=== PATIENT | male | born 1985 | race Caucasian/White ===

== ENCOUNTER → 2018-02-06 15:15 | Outpatient (CLI) | payer OTHER, SELFPAY ==
--- NOTE | 2018-02-06 15:15 | DT_ITS ---
This patient was seen during an EMR downtime February 03, 2018 - February 10, 2018. This patient may have a combination of paper and electronic documentation or all paper documentation. All documentation is viewable within the e-chart portion of [employer] for each patient visit.
[2018-02-11 01:51] LABS: ALB/GLOB Ratio 0.9 RATIO (0.9-2.4); Albumin, Serum 3.8 g/dL (3.2-5.0); BUN 14 mg/dL (7-18); BUN/Creat Ratio 14.7 RATIO (10-20); Creatinine, Serum 0.95 mg/dL (0.70-1.30); EST Glomerular Filtration Rate 98 mL/min (>60); Est Glom Filt Rate - Afr Amer 119 mL/min (>60); Globulin 4.1 g/dL (2.2-4.2); Glucose 93 mg/dL (74-106); Protein, Total 7.9 g/dL (6.4-8.2)
[2018-02-11 01:52] LABS: AST(SGOT) 57 U/L (15-37); Alanine Aminotransfer ALT/SGPT 141 U/L (16-61); Alkaline Phosphatase 64 U/L (45-117); Anion Gap 6 (5-15); Calcium,Total 8.4 mg/dL (8.5-10.1); Chloride 106 mmol/L (98-107); Potassium 3.9 mmol/L (3.5-5.1); Sodium Level 141 mmol/L (136-145); T4 Free Direct 1.04 ng/dL (0.76-1.46)
[2018-02-11 03:31] LABS: Absolute Lymphocyte Count 2.71 X10^3/ul (0.83-4.51); Absolute Neutrophil Count 4.6 X10^3/uL (2.0-7.7); Basophil# 0.02 X10^3/uL; Basophil% 0.2 % (0-1); Eosinophil# 0.54 X10^3/uL; Eosinophils% 6.5 % (0-5); Hematocrit 45.7 % (40-54); Lymphocyte # 2.71 X10^3/ul (4.0); Lymphocyte % 32.5 % (19-41); Mean Corp Hgb Conc 32.8 g/gl (32-36); Mean Corpuscular Hgb 28.7 pg (27.0-32.0); Mean Corpuscular Volume 87.5 fL (80-94); Mean Platelet Vol. 11.3 fl (6.2-12.0); Monocyte# 0.43 X10^3/uL; Monocyte% 5.2 % (0-10); Neutrophil # 4.62 X10^3/uL (2.7-7.7); Neutrophil % 55.5 % (47-70); POSITIVE COUNT NO; POSITIVE DIFFERENTIAL NO; POSITIVE MORPHOLOGY NO; Platelet Count 260 K/mm3 (150-450); RBC Distribution Width CV 12.8 % (11.6-14.6); RBC Distribution Width SD 40.8 fl (35.1-43.9); Red Blood Count 5.22 M/mm3 (4.6-6.2); White Blood Count 8.3 K/mm3 (4.4-11.0)
== END ==
PROVIDERS: Visit Provider Family Medicine
DX: E66.9 Obesity, unspecified (principal); E01.0 Iodine-deficiency related diffuse (endemic) goiter
CPT/HCPCS: 36415; 80053; 84432; 84439; 84443; 85025; 86376; 86800

== ENCOUNTER → 2018-02-12 10:16 | Outpatient (CLI) | payer OTHER, SELFPAY ==
--- NOTE | 2018-02-12 10:23 | US_ITS ---
STUDY: THYROID ULTRASOUND REASON FOR EXAM: Male, 32 years old. Thyromegaly. TECHNIQUE: Ultrasound evaluation of the thyroid was performed with real-time and static mack-scale imaging. COMPARISON: None. FINDINGS: RIGHT LOBE: The right lobe of the thyroid gland measures 5.2 x 2.0 x 1.9 cm. There is a homogeneous echotexture. There are no demonstrated solid, cystic or complex lesions. LEFT LOBE: The left lobe of the thyroid gland measures 5.2 x 1.9 x 1.9 cm. There is a homogeneous echotexture. There are no demonstrated solid, cystic or complex lesions. ISTHMUS: The isthmus measures 3.0 mm . The regional lymph nodes are normal. US/Thyroid IMPRESSION: Enlarged thyroid gland. No solid nodules identified. Electronically Signed: Jeanine Victoria MD at 10:51 EDT Tel , Service support ,
== END ==
LOC: US 10:19
PROVIDERS: Family Provider Family Medicine; PCP Family Medicine; Visit Provider Family Medicine
DX: E01.0 Iodine-deficiency related diffuse (endemic) goiter (principal)
CPT/HCPCS: 76536

== ENCOUNTER → 2018-03-18 16:34 | Outpatient (CLI) | payer OTHER, SELFPAY ==
[2018-03-18 18:09] LABS: AST(SGOT) 53 U/L (15-37); Alanine Aminotransfer ALT/SGPT 124 U/L (16-61); Albumin, Serum 3.9 g/dL (3.2-5.0); Alkaline Phosphatase 60 U/L (45-117); Anion Gap 7 (5-15); BUN 13 mg/dL (7-18); BUN/Creat Ratio 12.9 RATIO (10-20); Calcium,Total 9.1 mg/dL (8.5-10.1); Chloride 105 mmol/L (98-107); Creatinine, Serum 1.01 mg/dL (0.70-1.30); EST Glomerular Filtration Rate 91 mL/min (>60); Est Glom Filt Rate - Afr Amer 110 mL/min (>60); Globulin 3.9 g/dL (2.2-4.2); Glucose 94 mg/dL (74-106); Potassium 3.9 mmol/L (3.5-5.1); Protein, Total 7.8 g/dL (6.4-8.2); Sodium Level 142 mmol/L (136-145)
[2018-03-20 09:35] LABS: HEPATITIS B SURFACE AG Negative (Negative); Hep B Surface Antibodies Non Reactive (.); Hep C Antibodies 0.1 s/co ratio (0.0-0.9)
== END ==
LOC: MFPLAB 16:34
PROVIDERS: Family Provider Family Medicine; PCP Family Medicine; Visit Provider Family Medicine
DX: R94.5 Abnormal results of liver function studies (principal)
CPT/HCPCS: 36415; 80053; 86706; 86803; 87340

== ENCOUNTER → 2018-03-27 10:13 | Outpatient (CLI) | payer OTHER, SELFPAY ==
--- NOTE | 2018-03-27 10:21 | US_ITS ---
STUDY: ABDOMINAL ULTRASOUND - RIGHT UPPER QUADRANT REASON FOR VISIT: Male, 32 years old. Elevated LFTs, nausea TECHNIQUE: Ultrasound evaluation of the right upper quadrant was performed with real-time and static mack-scale imaging. TECHNICAL QUALITY: Adequate. COMPARISON: None. FINDINGS: Liver: The liver measures 18.7 cm. There is increased echogenicity consistent with fatty infiltration. The bile ducts are within normal limits. There is hepatic color flow. The direction of portal flow is hepatopetal. There is no demonstrated mass lesion. Gallbladder: Normal distended gallbladder. The gallbladder wall measures 2.8 mm. There is a negative sonographic Rojas's sign. There is no pericholecystic fluid. There are no gallstones. Common Bile Duct (C.B.D.): The common bile duct measures 5.1 mm. Pancreas: Normal size of the head, body and tail of the pancreas. There is normal echogenicity of the pancreas. There is no demonstrated pancreatic mass or cyst. Right Kidney: Normal size of the right kidney. The right kidney measures 11.2 x 5.4 x 4.9 cm. Normal renal cortex. The right cortex measures 1.9 cm. There is no demonstrated renal mass or cyst. There is no right hydronephrosis. US/Liver IMPRESSION: Hepatomegaly with fatty infiltration of liver, no discrete lesion Electronically Signed: Cheikh Doshi MD at 11:11 EDT , Service support ,
== END ==
PROVIDERS: Family Provider Family Medicine; PCP Family Medicine; Visit Provider Family Medicine
DX: R94.5 Abnormal results of liver function studies (principal)
CPT/HCPCS: 76705

== ENCOUNTER 2018-11-05 04:59 | Emergency (ER) | payer OTHER, SELFPAY ==
[2018-11-05 05:00] VITALS: BP 139/92; PULSE 90; RESP 18; TEMP 35.7; O2SAT 98; BMI 35.4
--- NOTE | 2018-11-05 05:03 | RAD_ITS ---
STUDY: X-RAY - PELVIS REASON FOR EXAM: Male, 33 years old. Fall and tender left ischium TECHNIQUE: One view of the pelvis was obtained. COMPARISON: None. FINDINGS: There is a non-specific bowel gas pattern. Normal visualized soft tissue structures. Normal bilateral iliac wings, sacroiliac joints and visualized sacrum. Normal visualized bilateral superior and inferior pubic rami. Normal pubic symphysis. Normal ischial tuberosities. Normal visualized right femoral head. Normal right acetabulum. Normal right hip joint. Normal visualized left femoral head. Normal left acetabulum. Normal left hip joint. RAD/Pelvis 1 or 2 Views IMPRESSION: No acute osseous injury is evident. Electronically Signed: Mushtaq Hood MD at 6:08 EST Tel , Service support ,
[2018-11-05] MEDS: Ibuprofen 600 MG Tablet PO (05:06)
--- NOTE | 2018-11-05 05:09 | ED.DCSUM_ITS ---
- ER Visit Summary Date of Service: 11/05/18 Chief Complaint: Fall, back pain History of Present Illness: The patient is a 33 M slipped down steps inside at 3 AM. Fell directly on left buttocks, no head injuries. Concerns of back pain. No medicines taken prior to arrival. No history of gastric ulcers or kidney injury. Pain worse with walking. No radicular symptoms. Physical Examination: General: Alert and oriented ?3, no acute distress HEENT: Normocephalic, atraumatic. Moist mucosa membranes Neck: supple, nontender. Cardiovascular: Regular rate and rhythm, no murmurs Respiratory: Normal breath sounds, symmetric, no distress Back: No midline spine tenderness. There is tender palpation to his left ischium, no sacral tenderness. Straight leg test was negative. Abdomen: Soft, nontender, nondistended. There is no anterior pelvic rim tenderness. Extremities: Nontender, no edema, pulses intact ?4. Negative logroll bilaterally. Neuro: no focal neurological deficits. Test Results: Pelvic x-ray: No acute process Emergency Department Course and Treatment: Patient given Motrin, x-ray pelvis obtained reviewed by myself shows no acute process. Discussed gluteal contusion, he will continue NSAIDs [id number] to help with symptoms. He is ambulating. He will follow-up as an outpatient. Work note given for today. All questions were answered. Treatment Plan: [] Disposition: Discharge Impression: Left gluteal contusion This note was generated with [employer] dictation software. It may contain incorrect words, spelling, and punctuation that were not noted in review of the chart prior to signing ED Disposition - Plan for ED Patient: Disposition: Home or Assisted Living Diagnosis: Contusion, buttock Instructions: ED Contusion Soft Tissue Referrals: Epi Foote MD [Primary Care Provider] - 3-5 Days if not improving
== END 2018-11-05 05:45 | disposition home or self-care (01) ==
PROVIDERS: Emergency Provider Emergency Medicine; Family Provider Family Medicine; PCP Family Medicine
DX: S30.0XXA Contusion of lower back and pelvis, initial encounter (principal); W10.9XXA Fall (on) (from) unspecified stairs and steps, initial encounter; Y93.9 Activity, unspecified; Y92.9 Unspecified place or not applicable; Y99.9 Unspecified external cause status
CPT/HCPCS: 72170; 99283

== ENCOUNTER → 2020-02-03 16:49 | Outpatient (CLI) | payer OTHER, SELFPAY ==
[2020-02-03 18:39] LABS: ALB/GLOB Ratio 0.9 RATIO (0.9-2.4); AST(SGOT) 55 U/L (15-37); Alanine Aminotransfer ALT/SGPT 157 U/L (16-61); Albumin, Serum 3.7 g/dL (3.2-5.0); Alkaline Phosphatase 67 U/L (45-117); Anion Gap 8 (5-15); BUN 16 mg/dL (7-18); BUN/Creat Ratio 15.5 RATIO (10-20); Chloride 107 mmol/L (98-107); Creatinine, Serum 1.03 mg/dL (0.70-1.30); EST Glomerular Filtration Rate 88 mL/min (>60); Est Glom Filt Rate - Afr Amer 106 mL/min (>60); Globulin 4.2 g/dL (2.2-4.2); Glucose 109 mg/dL (74-106); Potassium 3.6 mmol/L (3.5-5.1); Protein, Total 7.9 g/dL (6.4-8.2); Sodium Level 143 mmol/L (136-145)
== END ==
PROVIDERS: PCP Family Medicine; Referring Provider Family Medicine; Visit Provider Family Medicine
DX: K76.0 Fatty (change of) liver, not elsewhere classified (principal)
CPT/HCPCS: 36415; 80053

== ENCOUNTER → 2020-02-04 13:50 | Outpatient (CLI) | payer OTHER, SELFPAY ==
[2020-02-04 18:12] LABS: Hemoglobin A1c 5.8 % (3.8-5.6)
== END ==
PROVIDERS: PCP Family Medicine; Referring Provider Family Medicine; Visit Provider Family Medicine
DX: R73.09 Other abnormal glucose (principal)
CPT/HCPCS: 36415; 83036

== ENCOUNTER → 2021-02-20 10:41 | Outpatient (CLI) | payer BC, SELFPAY ==
[2021-02-20 12:22] LABS: Absolute Lymphocyte Count 2.39 X10^3/uL (0.83-4.51); Absolute Neutrophil Count 7.3 X10^3/uL (2.0-7.7); Basophil# 0.03 X10^3/uL; Basophil% 0.3 % (0-1); Eosinophil# 0.47 X10^3/uL; Eosinophils% 4.3 % (0-5); Hematocrit 48.2 % (40-54); Hemoglobin 15.5 g/dL (13.0-16.5); Lymphocyte # 2.39 X10^3/ul (0.83-4.51); Lymphocyte % 21.9 % (19-41); Mean Corp Hgb Conc 32.2 g/dL (32-36); Mean Corpuscular Hgb 28.7 pg (27.0-32.0); Mean Corpuscular Volume 89.3 fL (80-94); Mean Platelet Vol. 12.5 fl (6.2-12.0); Monocyte# 0.74 X10^3/uL; Monocyte% 6.8 % (0-10); NRBC Flagged by Analyzer 0 % (0-5); Neutrophil # 7.25 X10^3/uL (2.7-7.7); Neutrophil % 66.4 % (47-70); Platelet Count 263 K/mm3 (150-450); RBC Distribution Width CV 12.7 % (11.6-14.6); RBC Distribution Width SD 41.3 fl (35.1-43.9); White Blood Count 10.9 K/mm3 (4.4-11.0)
[2021-02-20 12:37] LABS: ALB/GLOB Ratio 0.8 RATIO (0.9-2.4); AST(SGOT) 62 U/L (15-37); Alanine Aminotransfer ALT/SGPT 130 U/L (16-61); Albumin, Serum 3.5 g/dL (3.2-5.0); Alkaline Phosphatase 67 U/L (45-117); Anion Gap 8 (5-15); BUN 14 mg/dL (7-18); BUN/Creat Ratio 14.9 RATIO (10-20); CRP 4.08 mg/L (0.0-3.0); Calcium,Total 8.8 mg/dL (8.5-10.1); Chloride 104 mmol/L (98-107); Creatinine, Serum 0.94 mg/dL (0.70-1.30); EST Glomerular Filtration Rate 97 mL/min (>60); Est Glom Filt Rate - Afr Amer 117 mL/min (>60); Globulin 4.2 g/dL (2.2-4.2); Glucose 102 mg/dL (74-106); Lipase 124 U/L (73-393); Potassium 4.1 mmol/L (3.5-5.1); Protein, Total 7.7 g/dL (6.4-8.2); Sodium Level 140 mmol/L (136-145)
[2021-02-20 13:13] LABS: Hepatitis C Antibody Non-Reactive (Nonreactive)
[2021-02-20 13:14] LABS: Erythrocyte Sedimentation Rate 17 mm/hr (0-20)
== END ==
PROVIDERS: PCP Family Medicine; Visit Provider Family Medicine
DX: R19.7 Diarrhea, unspecified (principal); R10.11 Right upper quadrant pain
CPT/HCPCS: 36415; 80053; 83690; 85025; 85652; 86140; 86803

== ENCOUNTER → 2021-02-24 09:40 | Outpatient (CLI) | payer BC, SELFPAY ==
--- NOTE | 2021-02-24 09:43 | US_ITS ---
STUDY: ABDOMINAL ULTRASOUND - RIGHT UPPER QUADRANT REASON FOR VISIT: Male, 35 years old RUQ ABD PAIN/COLICKY AND POSTPANDIAL TECHNIQUE: Ultrasound evaluation of the right upper quadrant was performed with real-time and static mack-scale imaging. TECHNICAL QUALITY: Adequate. COMPARISON: 03/27/2018 FINDINGS: Liver: The liver measures 19.5 cm. There is increased echogenicity consistent with fatty infiltration. The bile ducts are within normal limits. There is hepatic color flow. The direction of portal flow is hepatopetal. There is no demonstrated mass lesion. Gallbladder: Normal distended gallbladder. The gallbladder wall measures 2 mm. There is a negative sonographic Rojas''s sign. There is no pericholecystic fluid. There are no gallstones. Common Bile Duct (C.B.D.): The common bile duct measures 4 mm. Pancreas: Normal size of the head, body and tail of the pancreas. There is normal echogenicity of the pancreas. There is no demonstrated pancreatic mass or cyst. Right Kidney: Normal size of the right kidney. The right kidney measures 11.3 cm. Normal renal cortex. The right cortex measures 1.7 cm. There is no demonstrated renal mass or cyst. There is no right hydronephrosis. US/Abdomen Limited IMPRESSION: Fatty infiltration of the liver. Electronically Signed: Andrea Harper MD at 11:06 EDT Tel , Service support ,
== END ==
PROVIDERS: PCP Family Medicine; Referring Provider Family Medicine; Visit Provider Family Medicine
DX: R10.11 Right upper quadrant pain (principal)
CPT/HCPCS: 76705

== ENCOUNTER → 2022-01-22 | Outpatient (CLI) | payer BC, SELFPAY ==
--- NOTE | 2022-01-22 16:25 | RAD_ITS ---
EXAM: XR RIGHT HAND COMPLETE, 3 OR MORE VIEWS CLINICAL INDICATION: PAIN TECHNIQUE: Frontal, lateral and oblique views of the right hand. This report was created using [employer] report generation technology. COMPARISON: None. FINDINGS: BONES/JOINTS: Unremarkable. No acute fracture. No subluxation. Normal alignment. Preservation of the joint space. No sclerotic or destructive changes observed. SOFT TISSUES: Unremarkable. No soft tissue swelling or gas. No radiopaque foreign body. RAD/Hand Min 3 Views IMPRESSION: No acute abnormality. Electronically Signed: Masoud Aguiar MD at 15:21 EDT ,
--- NOTE | 2022-01-22 16:25 | RAD_ITS ---
EXAM: XR LEFT HAND COMPLETE, 3 OR MORE VIEWS CLINICAL INDICATION: PAIN TECHNIQUE: Frontal, lateral and oblique views of the left hand. This report was created using [employer] report generation technology. COMPARISON: None. FINDINGS: BONES/JOINTS: Unremarkable. No acute fracture. No subluxation. Normal alignment. Preservation of the joint space. No sclerotic or destructive changes observed. SOFT TISSUES: Unremarkable. No soft tissue swelling or gas. No radiopaque foreign body. RAD/Hand Min 3 Views IMPRESSION: No acute abnormality. Electronically Signed: Masoud Aguiar MD at 15:21 EDT ,
== END | disposition home or self-care (01) ==
LOC: MTRAD 16:24
PROVIDERS: PCP Family Medicine; Referring Provider Nurse Practitioner Family; Visit Provider Nurse Practitioner Family
DX: M79.641 Pain in right hand (principal); M79.642 Pain in left hand
CPT/HCPCS: 73130

== ENCOUNTER 2023-01-21 09:44 | Emergency (ER) | payer BC, SELFPAY ==
[2023-01-21 09:45] VITALS: BP 145/114; PULSE 126; RESP 18; TEMP 35.7; O2SAT 96; BMI 40.2
--- NOTE | 2023-01-21 10:29 | EKG12_ITS ---
Test Reason : ABD PAIN Blood Pressure : / mmHG Vent. Rate : 097 BPM Atrial Rate : 097 BPM P-R Int : 144 ms QRS Dur : 090 ms QT Int : 322 ms P-R-T Axes : 038 084 038 degrees QTc Int : 408 ms Normal sinus rhythm Normal ECG Confirmed by STARLA NAYAK, PRISCILA ([id number]), features editor FRANCIA DOLAN ([id number]) on 01/23/2023 2:13:16 PM Referred By: Confirmed By:PRISCILA CHA MD
--- NOTE | 2023-01-21 10:44 | ED.RN ---
NO OLD EKGS
[2023-01-21] MEDS: 0.9% Normal Saline 1,000 ML 150 ML IV (11:02)
[2023-01-21] MEDS: Ondansetron 4 MG/2 ML Vial IV (11:02)
[2023-01-21] MEDS: Dicyclomine 20 MG/2 ML Vial IM (11:02)
[2023-01-21] MEDS: 0.9% Normal Saline 1,000 ML 1000 ML IV (11:02)
[2023-01-21 11:03] LABS: Absolute Lymphocyte Count 2.67 X10^3/uL (0.83-4.51); Absolute Neutrophil Count 8.2 X10^3/uL (2.0-7.7); Basophil# 0.06 X10^3/uL; Basophil% 0.5 % (0-1); Eosinophil# 0.25 X10^3/uL; Eosinophils% 2.1 % (0-5); Hematocrit 52.7 % (40-54); Hemoglobin 16.8 g/dL (13.0-16.5); Lymphocyte # 2.67 X10^3/ul (0.83-4.51); Lymphocyte % 22.4 % (19-41); Mean Corp Hgb Conc 31.9 g/dL (32-36); Mean Corpuscular Hgb 28.2 pg (27.0-32.0); Mean Corpuscular Volume 88.4 fL (80-94); Mean Platelet Vol. 10.7 fl (6.2-12.0); Monocyte# 0.64 X10^3/uL; Monocyte% 5.4 % (0-10); NRBC Flagged by Analyzer 0 % (0-5); Neutrophil # 8.22 X10^3/uL (2.7-7.7); Neutrophil % 68.9 % (47-70); Platelet Count 341 K/mm3 (150-450); RBC Distribution Width CV 12.8 % (11.6-14.6); RBC Distribution Width SD 41.3 fl (35.1-43.9); Red Blood Count 5.96 M/mm3 (4.6-6.2); White Blood Count 11.9 K/mm3 (4.4-11.0)
[2023-01-21 11:06] VITALS: BP 133/89; PULSE 104; RESP 23; O2SAT 97
[2023-01-21 11:18] LABS: Bacteria 0 SEEN /hpf (None Seen); Mucous, Urine 0 SEEN /hpf (<or=2+); Red Blood Cells-Urine 0 SEEN /hpf (0-5); Squamous Epithelial Cells - UA 0 SEEN /hpf (0-5)
[2023-01-21 11:19] LABS: AST(SGOT) 77 U/L (15-37); Alanine Aminotransfer ALT/SGPT 162 U/L (16-61); Albumin, Serum 3.5 g/dL (3.2-5.0); Alkaline Phosphatase 82 U/L (45-117); Anion Gap 12 (5-15); BUN 22 mg/dL (7-18); Bilirubin, Direct 0.12 mg/dL (0.00-0.30); Calcium,Total 9.6 mg/dL (8.5-10.1); Chloride 105 mmol/L (98-107); Creatinine, Serum 1.05 mg/dL (0.70-1.30); EST Glomerular Filtration Rate 84 mL/min (>60); Est Glom Filt Rate - Afr Amer 102 mL/min (>60); Estimated Creatinine Clearance 105.72 ml/min; Globulin 5.1 g/dL (2.2-4.2); Glucose 163 mg/dL (74-106); Lipase 29 U/L (13-75); Potassium 4.2 mmol/L (3.5-5.1); Protein, Total 8.6 g/dL (6.4-8.2); Sodium Level 137 mmol/L (136-145)
[2023-01-21 11:22] LABS: Color, Urine Yellow (Yellow); Glucose, Dipstick Normal (Normal); Ketone-Dipstick 15 mg/dl (Negative); Leukocyte Esterase-Dipstick 25 /ul (Negative); Nitrite-Dipstick Negative (Negative); Occult Blood-Urine Negative /ul (Negative); Protein-Dipstick 30 mg/dl (Negative); Specific Gravity, Urine 1.025 (1.002-1.030); Urine Bilirubin Dipstick Negative (Negative); Urine Clarity Clear (Clear); Urine Urobilinogen 1 mg/dl (Normal)
[2023-01-21 11:35] LABS: White Blood Cells 0-5 SEEN /hpf (0-5)
[2023-01-21 13:24] VITALS: BP 133/90; PULSE 99; RESP 21
[2023-01-21 13:25] VITALS: BP 133/90; PULSE 99; RESP 21; TEMP 36.6
--- NOTE | 2023-01-21 14:00 | EX.ED.DYSGE1 ---
HPI History of Present Illness Chief Complaint: Abd Pain Detail of Chief Complaint: Abdominal pain, nausea, vomiting, diarrhea Informant: patient Onset/Context/Timing Onset: Yesterday Current Severity: Moderate Maximum Severity: Moderate Narrative Narrative: While hePatient presents secondary to epigastric abdominal pain along with nausea, vomiting, and diarrhea. He had subjective fevers at home but not measured his temperature. He states symptoms started yesterday afternoon. He has a constant pain across his upper abdomen but states will have a sharp pain that shoots across on the right to the left. It lasted for short time and then resolves. PFSH PFS Medical History Acid reflux Home Medications dicyclomine 20 mg tablet 20 mg PO BID PRN abdominal pain #14 tabs 01/21/23 [Rx Last Taken Unknown] ondansetron 4 mg disintegrating tablet 4 mg PO Q8H PRN PRN Nausea #10 tabs 01/21/23 [Rx Last Taken Unknown] Allergy/AdvReac Type Severity Reaction Status Date / Time bacitracin Allergy Angioedema Verified 01/21/23 10:04 [From Neosporin ([id number])] neomycin Allergy Angioedema Verified 01/21/23 10:04 [From Neosporin ([id number])] polymyxin B Allergy Angioedema Verified 01/21/23 10:04 [From Neosporin ([id number])] Social History Smoking Status: Never smoker ROS ROS ED Constitutional Constitutional ED: Reports fever(s) and subjective; Denies chills Eyes Eyes: Denies change in vision or discharge from eye(s) ENT ENT ED: Denies discharge from eye(s), rhinorrhea or sore throat Cardiovascular Cardiovascular: Denies chest pain or palpitations Respiratory/Chest Respiratory/Chest: Denies cough or dyspnea Gastrointestinal Gastrointestinal: Reports abdominal pain, diarrhea, nausea and vomiting Genitourinary Genitourinary ED: Denies dysuria Musculoskeletal Musculoskeletal: Denies back pain or extremity pain Integumentary Denies Abrasions or rash Neurologic Neurologic: Denies headache(s) or weakness Psychiatric Psychiatric: Denies anxiety or depression Allergic/Immunologic Allergic/Immunologic ED: Denies lip swelling or urticaria EXAM Physical Exam Const Vital Signs: 01/21/23 09:45 01/21/23 11:06 01/21/23 13:24 Temperature 96.3 F L Temperature Source Temporal Pulse Rate 126 H 104 H 99 Respiratory Rate 18 23 H 21 H Blood Pressure 145/114 H 133/89 H 133/90 H Blood Pressure Mean 124 103 104 Pulse Ox 96 97 Oxygen Delivery Method Room Air Room Air Room Air 01/21/23 13:25 Temperature 98 F Temperature Source Temporal Pulse Rate 99 Respiratory Rate 21 H Blood Pressure 133/90 H Blood Pressure Mean 104 Pulse Ox Oxygen Delivery Method Positive well nourished and well developed General Appearance ED: well developed HEENT Reports normocephalic, head/scalp atraumatic and dry mucous membranes Mouth ED: Yes dry mucous membranes Mouth: dry mucous membranes Eyes PERRL and EOMs intact bilaterally Neck supple Chest Wall inspection of chest normal and palpation of chest normal Resp normal respiratory effort and clear to auscultation bilaterally Cardio regular rhythm Rate: tachycardic GI GI Narrative: Abdomen is soft with epigastric tenderness to palpation. No guarding or rebound. Hypoactive but present bowel sounds are noted. Palpation: soft Extremity normal to inspection Neuro oriented x3 and no sensory deficits noted Sensorium / Orientation: alert Motor Exam: strength 5/5 throughout Psych mental status grossly normal Skin no rashes or lesions noted MDM MDM MDM Narrative Medical decision making narrative: Labwork obtained to evaluate for leukocytosis, anemia, and electrolyte derangement. Patient given IV fluids along with Zofran and Bentyl. Lab Data Attestation: I reviewed the patient's lab results. Labs: Laboratory Results - last 24 hr 01/21/23 01/21/23 01/21/23 10:52 10:52 11:00 WBC 11.9 H RBC 5.96 Hgb 16.8 H Hct 52.7 MCV 88.4 MCH 28.2 MCHC 31.9 L RDW Std Deviation 41.3 RDW Coeff of Honorio 12.8 Plt Count 341 MPV 10.7 Immature Gran % (Auto) 0.700 Neut % (Auto) 68.9 Lymph % (Auto) 22.4 Garrard % (Auto) 5.4 Eos % (Auto) 2.1 Baso % (Auto) 0.5 Absolute Neuts (auto) 8.2 H Absolute Lymphs (auto) 2.67 Nucleated RBC % 0 Sodium 137 Potassium 4.2 Chloride 105 Carbon Dioxide 20.0 L Anion Gap 12 BUN 22 H Creatinine 1.05 Estim Creat Clear Calc 105.72 Est GFR (MDRD) Af Amer 102 Est GFR (MDRD) Non-Af 84 BUN/Creatinine Ratio 21.0 H Glucose 163 H Calcium 9.6 Total Bilirubin 0.50 Direct Bilirubin 0.12 AST 77 H ALT 162 H Alkaline Phosphatase 82 Total Protein 8.6 H Albumin 3.5 Globulin 5.1 H Lipase 29 Urine Color Yellow Urine Clarity Clear Urine pH 5.0 Ur Specific [place] 1.025 Urine Protein 30 H Urine Glucose (UA) Normal Urine Ketones 15 H Urine Occult Blood Negative Urine Nitrite Negative Urine Bilirubin Negative Urine Urobilinogen 1 H Ur Leukocyte Esterase 25 H Urine RBC 0 SEEN Urine WBC 0-5 SEEN Ur Squamous Epith Cells 0 SEEN Urine Bacteria 0 SEEN Urine Mucus 0 SEEN Treatment and Re-Evaluation :: CBC was a white count 11.9 with no left shift. Hemoglobin concentrated at 16.8. Chemistry studies reveal slightly low bicarb at 20. BUN is 22 and creatinine is 1.05. Glucose is 163. LFTs reveal an AST of 77 and an ALT of 162, however this appears consistent with his prior values. Lipase is normal. Urinalysis reveals 15 ketones with no evidence of acute infection. On repeat evaluation patient does feel improved. Heart rate is improved from 126 down to 99. He is able to tolerate p.o. fluids at this time. I believe the patient does have viral gastroenteritis versus food poisoning. I do not think he has acute cholecystitis or pancreatitis. I do not think imaging is needed at this time. He will be given prescriptions for Zofran and Bentyl with return instructions provided. Patient is comfortable with this plan. Discharge Plan Triage Chief Complaint: Abd Pain ED Provider: Sarah Condon Dx/Rx/DC Orders Clinical Impression: Gastroenteritis Instructions: ED FOOD POIS or G-ENTERITIS [id number] Prescriptions: New ondansetron 4 mg tablet,disintegrating 4 mg PO Q8H PRN PRN (Reason: Nausea) Qty: 10 0RF dicyclomine 20 mg tablet 20 mg PO BID PRN (Reason: abdominal pain) Qty: 14 0RF Stand Alone Forms: ED Work / School Excuse Primary Care Provider: Epi Foote Referrals: Epi Foote MD [Primary Care Provider] - 3-5 Days if not improving Disposition Disposition: Home, Self Care Discharge Date/Time: 01/21/23 14:27
== END 2023-01-21 14:27 | disposition home or self-care (01) ==
PROVIDERS: Emergency Provider Emergency Medicine; PCP Family Medicine; Visit Provider Emergency Medicine
DX: K52.9 Noninfective gastroenteritis and colitis, unspecified (principal)
CPT/HCPCS: 80048; 80076; 81001; 83690; 85025; 93005; 96361; 96372; 96374; 99283; J7030; J2405

== ENCOUNTER → 2025-08-16 | Outpatient (CLI) | payer OTHER, SELFPAY ==
--- NOTE | 2025-08-16 07:05 | RAD_ITS ---
PROCEDURE: CHEST PA AND LATERAL 08/16/2025 REASON FOR EXAM: COUGH TECHNIQUE: Procedure Code: RADCXR Modality: DX Procedure: CHEST PA AND LATERAL COMPARISON: None. FINDINGS: Mild bilateral basilar atelectatic pulmonary changes/infiltrates. There is no demonstrated pleural abnormality. Normal heart and pericardium. Normal mediastinum and neha. Normal visualized pulmonary arteries. Normal visualized aortic arch and descending thoracic aorta. Normal visualized thoracic spine. Normal visualized ribs, clavicles, and shoulders. There is no demonstrated abnormality of the visualized soft tissue structures of the upper abdomen. RAD/Chest PA and Lateral IMPRESSION: Mild bilateral basilar atelectatic changes/infiltrates. [facility]
--- OUTSIDE RECORDS SUMMARY | 2025-08-16 07:24 | XMS RPT_ITS | CCD ---
Author Organization [facility] Care Team Providers Care Proced Tech Name Role Phone Jose Wilkes Primary Care Provider JOSE WILKES Primary Care Aditya WILKES, JOSE COOMBS Primary Care UnavailJose Moscoso Primary Care Provider RAMIRO WILLIS PA-C Attending Alfredo Finn BATTERBOARD SETTER-[facility], CESARIO Primary Care Aditya HILL APRNALEXUS, CESARIO Primary Care Physician [phone] Qamar NAYAK, Jose Patel Primary Care Provider SERGIO BATTERBOARD SETTER-LABOR AND DELIVERY NURSE, CESARIO Attending Annmarieabl karina BALTES BATTERBOARD SETTER-LABOR AND DELIVERY NURSE, CESARIO Primary Care Unavailabl e Allergies Allergy Classification Reported Allergen(s) Allergy Type Date of Onset Reaction(s) Facility (8 sources) bacitracin / neomycin / polymyxin b; Translations: [NEOMYCIN-BACITR ACIN-POLYMYXIN] Drug Allergy 03-16-2010 Swelling (finding) [facility] Work Phone: (6 sources) Hydrocortisone; Translations: [HYDROCORTISONE] Drug Allergy 01-08-2018 Swelling [facility] Work Phone: (2 sources) Bacitracin Drug Allergy 11-05-2018 Other: See Comments [facility] (1 source) Neomycin Drug Allergy 11-05-2018 Angioedema [facility] Work Phone: (1 source) Polymyxin B Drug Allergy 11-05-2018 Angioedema [facility] Work Phone: Medications Current Medications Medication Drug Class(es) Dates Sig (Normalized) Sig (Original) ergocalciferol, vitamin D2, (VITAMIN D2 ORAL) (5 sources) ergocalciferol, vitamin D2, (VITAMIN D2 ORAL) Take by mouth. Active ergocalciferol, vitamin D2, (VITAMIN D2 ORAL) Take by mouth. 0 Active Comment on above: Take by mouth. ibuprofen 200 mg oral tablet (2 sources) Nonsteroidal Anti-inflammatory Drug Start: 03-14-2023 ibuprofen 200 mg oral tablet Dose : 400 mg = 2 tab(s), Oral, q6hr, PRN pain or fever, 0 Refill(s) Start Date: 03/14/23 Status: Ordered Repeat number: 1 Lactobacillus acidophilus (5 sources) Lactobacillus acidophilus (PROBIOTIC ORAL) Take by mouth. Active Lactobacillus ac idophilus (PROBIOTIC ORAL) Take by mouth. 0 Active Comment on above: Take by mouth. omeprazole 20 mg delayed release oral capsule (5 sources) Proton Pump Inhibitor Start: 09-25-2023 End: 12-24-2023 omeprazole 20 mg oral delayed release capsule Dose : 20 mg = 1 cap(s), Oral, qDay, # 90 cap(s), 0 Refill(s), Pharmacy: [id number], GERD (gastroesophageal reflux disease), 182.9, cm, 09/25/23 15:50:00 EST, Height, kg, 09/25/23 15:50:00 EST, Dosing Weight Start Date: 09/25/23 Stop Date: 12/24/23 Status: Ordered take 1 tablet by queenie th once daily Omeprazole Magnesium 20 mg tablet Take 20 mg by mouth once daily. 0 Active End: 12-12-2021 omeprazole magnesium (PRILOS EC ORAL) Take by mouth. 0 12/12/2021 Discontinued (Course of therapy completed) Comment on above: Take by mouth. Take 20 mg by mouth once daily. sucralfate 1000 mg oral tablet (1 source) Aluminum Complex Start: 12-12-2021 End: 12-19-2021 take 1 tablet by mouth four times daily sucralfate (CARAFATE) 1 gram tablet Take 1 tablet by mouth four times daily for 7 days. 28 tablet 0 12/12/2021 12/19/2021 Active Comment on above: Take 1 tablet by queenie th four times daily for 7 days. Completed/Discontinued Medications Medication Drug Class(es) Dates Sig (Normalized) Sig (Original) Baking soda tabs -acid re (1 source) Start: 08-01-2023 Baking soda tabs -acid re Baking soda tabs -acid re, 0 Refill(s), 136.8 Start Date: 08/01/23 Status: Ordered brompheniramine maleate 0.4 mg/ml / dextromethorphan hydrobromide 2 mg/ml / pseudoephedrine hydrochloride 6 mg/ml oral solution (5 sources) alpha-Adrenergic Agonist, Uncompetitive Z-ooaxsd-B-aspartat e Receptor Antagonist, Sigma-1 Agonist Start: 01-08-2018 End: 08-20-2022 take 10 mL by mouth every six hours as needed Brompheniramine-P seudoeph-DM (BROMFED DM) 2-30-10 mg/5 mL syrup Take 10 mL by mouth four times daily as needed. 200 mL 01/08/2018 08/20/2022 Discontinued (Course of therapy completed) Comment on above: Take 10 mL by mouth four times daily as needed. Take 5 mL by mouth f our times daily as needed. Esomeprazole (2 sources) Proton Pump Inhibitor End: 12-12-2021 esomeprazole magnesium (NEXIUM ORAL) Take by mouth. 12/12/2021 Discontinued (Course of therapy completed) End: 12-12-2021 esomeprazole magnesium (NEXI UM ORAL) Take by mouth. 0 12/12/2021 Discontinued (Course of therapy completed) Comment on above: Take by mouth. loratadine 10 mg oral tablet (3 sources) Start: 2015 End: 2021 take 1 tablet by mouth once daily loratadine (CLARITIN) 10 mg tablet Indications: Hives , Allergic rhinitis, unspecified allergic rhinitis type Take 1 tablet by mouth once daily. 30 tablet 0 02/23/2016 08/20/2022 Discontinued Comment on above: Take 1 tablet by queenie once daily. methylPREDNISolone (3 sources) Corticosteroid Start: 2015 End: 2021 methylPREDNISolone (MEDROL, MEERA,) 4 mg Dose-Pack Indications: Hives , Allergic rhinitis, unspecified allergic rhinitis type Take as directed 1 Package 0 02/23/2016 08/20/2022 Discontinued (Course of therapy completed) Start: 02-23-2016 methylPREDNISo lone (MEDROL, MEERA,) 4 mg Dose-Pack Indications: Hives , Allergic rhinitis, unspecified allergic rhinitis type Take as directed 1 Package 0 02/23/2016 Active Comment on above: Take as directed naproxen 500 mg oral tablet (3 sources) Nonsteroidal Anti-inflammatory Drug Start: 03-16-20 End: 08-20-20 naproxen(NAPROSYN 500 MG TAB) Take one(1) tablet twice daily as needed for pain, with food. 0 03/16/2010 08/20/2022 Discontinued Comment on above: Take one(1) tablet t wice daily as needed for pain, with food. pantoprazole 40 mg delayed release oral tablet (4 sources) Proton Pump Inhibitor Start: 12-28-19 End: 08-20-20 take 1 tablet by mouth once daily before breakfast pantoprazole DR (PROTONIX) 40 mg tablet Take 1 tablet by mouth daily before breakfast. Take on empty stomach, 1/2 hr before meal. 30 tablet 12/28/2019 12/12/2021 Discontinued (Course of therapy completed) Comment on above: Take 1 tablet by queenie th daily before breakfast. Take on empty stomach, 1/2 hr before meal. predniSONE 20 mg oral tablet (3 sources) Start: 01-11-20 End: 08-20-20 predniSONE (DELTASONE) 20 mg tablet 2 pills daily x 3 days, then 1 pill daily x 4 days, then 1/2 pill daily x 4 days. 12 tablet 01/10/2019 08/20/2022 Discontinued (Course of therapy completed) Comment on above: 2 pills daily x 3 da ys, then 1 pill daily x 4 days, then 1/2 pill daily x 4 days. raNITIdine 300 mg oral tablet (3 sources) Histamine-2 Receptor Antagonist Start: 03-16-20 End: 08-20-20 ranitidine hcl(ZANTAC 300 MG TAB) Take one(1) tablet twice daily. 60 0 03/16/2010 08/20/2022 Discontinued Comment on above: Take one(1) tablet t wice daily. Problems Problem Classification Problem Date Documented Date Episodic/Chronic Diabetes mellitus without complication (4 sources) Type 2 diabetes mellitus; Translations: [Type 2 diabetes mellitus without complications] Onset: 02-10-2025 03-19-2024 Chronic Esophageal disorders (3 sources) Gastroesophageal reflux disease without esophagitis; Translations: [Gastro-esophageal reflux disease without esophagitis] Chronic Influenza (1 source) Influenza-like illness; Translations: [Influenza due to unidentified influenza virus with other respiratory manifestations] Episodic Other lower respiratory disease (1 source) Cough; Translations: [Cough] 08-02-2021 Episodic Other lower respiratory disease (1 source) Dyspnea; Translations: [Shortness of breath] 08-02-2021 Episodic Other nutritional; endocrine; and metabolic disorders (1 source) Body mass index 30+ - obesity; Translations: [Body mass index (BMI) 37.0-37.9, adult] Chronic Other nutritional; endocrine; and metabolic disorders (1 source) Body mass index 40+ - severely obese 03-14-2023 Chronic Other nutritional; endocrine; and metabolic disorders (1 source) Morbid obesity 03-14-2023 Chronic Other upper respiratory infections (2 sources) Sore throat symptom; Translations: [Acute pharyngitis, unspecified] Episodic Superficial injury; contusion (1 source) Contusion of buttock; Translations: [Contusion of lower back and pelvis, initial encounter] Episodic Unclassified (2 sources) Patient encounter status 03-14-2023 Viral infection (2 sources) Disease caused by 2019-nCoV; Translations: [COVID-19] 07-15-2024 Episodic Results Test Name Value Interpretation Reference Range Facility LABORATORYOrdered By: Chandan Yeung on 02-10-2025 Albumin DL <= 20 mg/L (U) [Mass/Vol] 12.1 mg/L Invalid Interpretation Code AO ADM SS Albumin/Creatinine DL <= 20 mg/L (U) [Mass ratio] 5 mg/G Normal 0 - 30 mg/G AO Chemistry S Creatinine (U) [Mass/Vol] 256.1 mg/dL Normal 40.0 - 278.0 mg/dL AO ADM SS MALBRon 02-10-2025 U Creatinine 256.1 mg/dL Normal 40.0-278.0 [facility] Comment on above: Performed By: #### M ALBR #### [address] [address] U Microalb 12.1 mg/L Normal [facility] Comment on above: Performed By: #### M ALBR #### [address] [address] U Ratio Alb/Cre 5 mg/G Normal 0-30 [facility] Comment on above: Performed By: #### M ALBR #### [id number] [place], [place] [address] LABORATORYOrdered By: SYSTEM SYSTEM on 09-28-2023 Albumin BCP dye [Mass/Vol] 3.4 G/dL Low 3.5 - 5.0 G/dL AO ADM SS Albumin/Globulin [Mass ratio] 0.8 {ratio} Low 1.1 - 2.5 ratio AO ADM SS ALP [Catalytic activity/Vol] 73 U/L Normal 40 - 135 U/L AO ADM SS ALT With P-5'-P [Catalytic activity/Vol] 85 U/L High 16 - 63 U/L AO ADM SS AST With P-5'-P [Catalytic activity/Vol] 38 U/L Normal 10 - 40 U/L AO ADM SS Basophil, Absolute 0.0 103/mcL Normal 0.0 - 0.2 10^3/mcL AO Workflow SS Basophils/100 WBC (Bld) 0.5 % Normal 0.0 - 2.5 % AO Workflow SS Bilirubin [Mass/Vol] 0.7 mg/dL Normal 0.2 - 1 .0 mg/dL AO ADM SS Comment on above: Interpretive Data: U se of this assay is not recommended for patients undergoing treatment with eltrombopag due to the potential for falsely elevated results. Calcium [Mass/Vol] 9.0 mg/dL Normal 8.4 - 10. 2 mg/dL AO ADM SS Chloride [Moles/Vol] 106 mmol/L Normal 98 - 10 7 mmol/L AO ADM SS CO2 [Moles/Vol] 26 mmol/L Normal 22 - 29 mmol/L AO AD M SS Creatinine [Mass/Vol] 0.95 mg/dL Normal 0.70 - 1.30 mg/dL AO ADM SS Electrolyte Balance 9.0 mEq/L Normal 4.0 - 15 .0 mEq/L AO ADM SS Eosinophil, Absolute 0.5 103/mcL High 0.0 - 0 .4 10^3/mcL AO Workflow SS Eosinophils/100 WBC (Bld) 6.6 % Normal 0.0 - 7.0 % AO Workflow SS Erythrocyte distribution width (RBC) [Ratio] 13.2 % Normal 11.5 - 14.5 % AO Workflow SS GFR/1.73 sq M.predicted among blacks MDRD (S/P/Bld) [Vol rate/Area] 108 ml/min/1.73sqm Invalid Interpretation Code AO Chemistry S Comment on above: Interpretive Data: GFR Population mean for , Non- Americans Ages 20-29 = 116 mL/min/1.73 sq.m. Ages 30-39 = 107 mL/min/1.73 sq.m. Ages 40-49 = 99 mL/min/1.73 sq.m. Ages 50-59 = 93 mL/min/1.73 sq.m. Ages 60-69 = 85 mL/min/1.73 sq.m. Ages 70+ = 75 mL/min/1.73 sq.m. Chronic Kidney Disease: Less than 60 mL/min/1.73 square meters End Stage Renal Disease: Less than 15 mL/min/1.73 square meters GFR/1.73 sq M.predicted among non-blacks MDRD (S/P/Bld) [Vol rate/Area] 89 ml/min/1.73sqm Invalid Interpretation Code AO Chemistry S Comment on above: Interpretive Data: GFR Population mean for , Non- Americans Ages 20-29 = 116 mL/min/1.73 sq.m. Ages 30-39 = 107 mL/min/1.73 sq.m. Ages 40-49 = 99 mL/min/1.73 sq.m. Ages 50-59 = 93 mL/min/1.73 sq.m. Ages 60-69 = 85 mL/min/1.73 sq.m. Ages 70+ = 75 mL/min/1.73 sq.m. Chronic Kidney Disease: Less than 60 mL/min/1.73 square meters End Stage Renal Disease: Less than 15 mL/min/1.73 square meters Globulin 4.1 G/dL Invalid Interpretation Code AO ADM SS Glucose [Mass/Vol] 124 mg/dL High 70 - 105 mg/dL AO ADM SS Hematocrit (Bld) [Volume fraction] 45.0 % Normal 42.0 - 52.0 % AO Workflow SS Hemoglobin (Bld) [Mass/Vol] 15.4 G/dL Normal 14.0 - 18.0 G/dL AO Workflow SS Lipase [Catalytic activity/Vol] 35 U/L Normal 16 - 77 U/L AO ADM SS Lymphocyte, Absolute 2.7 103/mcL Normal 0.8 - 3 .9 10^3/mcL AO Workflow SS Lymphocytes/100 WBC (Bld) 32.5 % Normal 10.0 - 50.0 % AO Workflow SS MCH (RBC) [Entitic mass] 28.9 pg Normal 27.0 - 31.2 pg AO Workflow SS MCHC 34.2 G/dL Normal 31.8 - 35.4 G/dL AO Workflow SS MCV (RBC) [Entitic vol] 84.5 fL Normal 80.0 - 94.0 fL AO Workflow SS Monocyte, Absolute 0.5 103/mcL Normal 0.2 - 1.0 10^3/mcL AO Workflow SS Monocytes/100 WBC (Bld) 6.0 % Normal 1.7 - 13.0 % AO Workflow SS Neutrophil, Absolute 4.5 103/mcL Normal 2.9 - 6 .2 10^3/mcL AO Workflow SS Neutrophils/100 WBC (Bld) 54.4 % Normal 37.0 - 80.0 % AO Workflow SS Platelet mean volume (Bld) [Entitic vol] 8.4 fL Normal 7.4 - 10.4 fL AO Workflow SS Platelets (Bld) [#/Vol] 306 103/mcL Normal 130 - 400 10^3/mcL AO Workflow SS Potassium [Moles/Vol] 5.0 mmol/L Normal 3.5 - 5.1 mmol/L AO ADM SS Protein [Mass/Vol] 7.5 G/dL Normal 6.4 - 8.2 G/dL AO ADM SS RBC (Bld) [#/Vol] 5.32 106/mcL Normal 4.04 - 6.1 3 10^6/mcL AO Workflow SS Sodium [Moles/Vol] 141 mmol/L Normal 136 - 145 mmol/L AO ADM SS Urea nitrogen [Mass/Vol] 15 mg/dL Normal 7 - 18 mg/dL AO ADM SS Urea nitrogen/Creatinine [Mass ratio] 16 ratio Normal 7 - 27 ratio AO ADM SS WBC (Bld) [#/Vol] 8.3 103/mcL Normal 4.6 - 10.8 10^3/mcL AO Workflow SS LABORATORYOrdered By: More Tucker on 09-28-2023 Cholesterol [Mass/Vol] 167 mg/dL Normal 0 - 200 mg/dL AO ADM SS Comment on above: Interpretive Data: C holesterol Reference Interval: Less than 200 Desirable 200-239 Borderline high risk 240 and above High risk Cholesterol in HDL [Mass/Vol] 34 mg/dL Low 40 - 60 mg/dL AO ADM SS Cholesterol in LDL [Mass/Vol] 118 mg/dL Normal 0 - 130 mg/dL AO ADM SS Triglyceride [Mass/Vol] 74 mg/dL Normal 0 - 150 mg/dL AO ADM SS Comment on above: Interpretive Data: T riglyceride Reference Interval: Less than 150 Normal 150-199 Borderline high risk 200-499 High risk 500 or higher Very high risk XR CHEST 2 VIEWSon 3 XR CHEST 2 VIEWS ORIGINAL EXAMINATION: TWO XRAY VIEWS OF THE CHEST 08/29/2023 11:41 am COMPARISON: None. HISTORY: ORDERING SYSTEM PROVIDED HISTORY: Reason for Exam: cough, fever SOB with decreased lung sounds FINDINGS: The heart size and mediastinal contours are normal. There is no lung infiltrate or edema. No pneumothorax or pleural fluid is present. Skeletal structures are unremarkable. IMPRESSION: No acute cardiopulmonary process. Interpreted by: Armin Holliday MD Preliminary Report By: Armin Holliday MD Electronically signed By Armin Holliday MD Dictated Date: 08/30/2023 2:51:33 PM Prelim Date: 08/30/2023 2:52:13 PM Sign Date: 08/30/2023 2:52:13 PM Ordering Provider: RAMIRO Quevedo [facility] (ID) STREP A MOLECULAR (POC)on Procedural Control Valid [facility] Strep A (POCT) Negative Negative [facility] JENNIFER CHANDRA ([id number]) 1985 M Date Time Provider Department 08/21/22 [facility] During your visit today, we recorded the following information about you: Elo Gonzalez APRN.ALXEUS 08/21/2022 8:13 AM Signed Please notify of negative covid test. INLFUENZA A was POSITIVE Continue comfort measures for symptoms as discussed at visit Any worsening symptoms follow up with PCP or ER. Elo Gonzalez APRN.ALEXUS Lara LPN 08/21/2022 10:11 AM Signed Pt notified of lab results and provider message. Alis Lara LPN Allergies As of Date: 08/21/2022 Noted Allergy Reaction NEOSPORIN (HYDROCORTISONE) 01/08/2018 7 - Swelling Comments: eyes and lips swell NEOSPORIN (NEOMYCIN-BACITRACIN- PO*03/16/2010 Date Reviewed: 08/20/2022 Reviewed by: Karen Rosario MA - Fully Assessed Reason for Visit: Results [95] Prescriptions as of 08/21/2022 - Omeprazole Magnesium (PRILOSEC OTC) 20 mg tablet Take 20 mg by mouth once daily. - ergocalciferol, vitamin D2, (VITAMIN D2 ORAL) Take by mouth. - Lactobacillus acidophilus (PROBIOTIC ORAL) Take by mouth. Problem List As Of Date: 08/21/2022 (None) Encounter Status:Closed by ALIS LARA LPN on 08/21/22 [facility] 08-20-2022 CNOV Office Visit ([facility] ) JENNIFER CHANDRA ([id number]) 1985 M Date Time Provider Department 08/20/22 6:15 PM JUSTIN DOHERTY [facility] During your visit today, we recorded the following information about you: Temperature Pulse Respiration Blood pressure 101.1 degrees 107/minute 22/minute 128/90 Weight 129.9 kg Justin Doherty MD 08/20/2022 6:45 PM Signed Patient presents with: Fatigue: Body aches, fever, sore throat, KELLER x 1 day HPI: Feeling sick today. Positive symptoms: Sore throat, Fever, Body Aches, Malaise, Fatigue, Headache, Cough, nausea Negative symptoms: Nasal Congestion, Rhinorrhea, Vomiting, Diarrhea, OTC: alkaseltzercezar Has had COVID illness 3 times in the past. MEDICATIONS: Current Outpatient Medications Medication Sig ergocalciferol, vitamin D2, (VITAMIN D2 ORAL) Take by mouth. Omeprazole Magnesium (PRILOSEC OTC) 20 mg tablet Take 20 mg by mouth once daily. Lactobacillus acidophilus (PROBIOTIC ORAL) Take by mouth. (Patient not taking: Reported on 08/20/2022) No current facility-administered medications for this visit. ALLERGIES: ALLERGIES Allergen Reactions Neosporin [Hydrocor* Swelling eyes and lips swell Neosporin [Neomycin* VITALS: BP 128/90 Pulse 107 Temp (!) 38.4 ?C (101.1 ?F) Resp 22 Wt 129.9 kg (286 lb 6.4 oz) SpO2 99% PHYSICAL EXAM: GEN: ill appearing HEENT: PERRL, EOMI, conjunctiva clear Ears: canals clear. TMs without erythema, bulge, or effusion Sinuses: non-tender frontal sinus, non-tender maxillary sinuses Throat: moist mucous membranes, pharyngeal erythema, no exudate Neck: supple, no thyromegaly, no lymphadenopathy HEART: regular rate and rhythm, no murmurs LUNGS: clear to auscultation, no wheezes or crackles, no increased WOB ASSESSMENT/PLAN: 1. Sore throat - ICD9: 462, ICD10: J02.9 (primary diagnosis) - STREP A MOLECULAR (POC)- negative - COVID WITH FLUA+B, ROUTINE 2. Influenza-like illness - ICD9: 487.1, ICD10: J11.1 - suspect influenza, differential includes COVID-19. - Discussed supportive care treatment with home isolation, rest, cold medicine, and analgesia. - Red flags to seek further treatment include chest pain, shortness of breath, and lethargy; in the ER if severe. - COVID WITH FLUA+B, ROUTINE Justin Doherty MD Referring Provider: SELF [200] Allergies As of Date: 08/20/2022 Noted Allergy Reaction NEOSPORIN (HYDROCORTISONE) 01/08/2018 7 - Swelling Comments: eyes and lips swell NEOSPORIN (NEOMYCIN-BACITRACIN- PO*03/16/2010 Date Reviewed: 08/20/2022 Reviewed by: Karen Rosario MA - Fully Assessed Reason for Visit: Fatigue [46] Cmt: Body aches, fever, sore throat, KELLER x 1 day Primary Visit Diagnosis:Sore throat [J02.9] Other Visit Diagnosis:Influenza-l pablo illness [J11.1] Order(s):STREP A MOLECULAR (POC) [5594330] Order #: [id number]. #:[id number] COVID WITH FLUA+B, ROUTINE [SQCOVFLU] Order #: [id number] FUTURE COVID WITH FLUA+B, ROUTINE [SQCOVFLU] Order #: [id number]. #:[id number] Prescriptions as of 08/20/2022 - Omeprazole Magnesium (PRILOSEC OTC) 20 mg tablet Take 20 mg by mouth once daily. - ergocalciferol, vitamin D2, (VITAMIN D2 ORAL) Take by mouth. - Lactobacillus acidophilus (PROBIOTIC ORAL) Take by mouth. Problem List As Of Date: 08/20/2022 (None) Medications Discontinued During This Encounter Prescriptions - methylPREDNISolone (MEDROL, MEERA,) 4 mg Dose-Pack (Discontinued) Reported on 01/10/2019 - Brompheniramine-Pseud oeph-DM (BROMFED DM) 2-30-10 mg/5 mL syrup (Discontinued) Reported on 01/10/2019 - Brompheniramine-Pseud oeph-DM (BROMFED DM) 2-30-10 mg/5 mL syrup (Discontinued) Reported on 12/12/2021 - predniSONE (DELTASONE) 20 mg tablet (Discontinued) Reported on 12/28/2019 - naproxen(NAPROSYN 500 MG TAB) (Discontinued) ADMINISTER WITH FOOD - ranitidine hcl(ZANTAC 300 MG TAB) (Discontinued) - loratadine (CLARITIN) 10 mg tablet (Discontinued) Reported on 01/10/2019 - pantoprazole DR (PROTONIX) 40 mg tablet (Discontinued) Take 1 tablet by mouth daily before breakfast. Take on empty stomach, 1/2 hr before meal. Letter Text Encounter Status:Closed by JUSTIN DOHERTY on 08/20/22 Normal [facility] STREP A MOLECULAR (POC)on Procedural Control Valid [facility] Strep A (POCT) Negative Negative [facility] Hand Min 3 Viewson 2 Hand Min 3 Views [facility] Imaging Services [address] [place] [address] Hand Min 3 Views MR#: [id number] Acct: [id number] Name: JENNIFER CHANDRA Rep #: [id number] : 1985 M 36 From: Masoud Aguiar MD PCP: Dr. Jose Wilkes MD Status: REG CLI Study: Hand Min 3 Views Date of Exam: 01/22/22 Exam# [id number] Ordering Dr: Gema Bowne NP [employer]NAGER-C EXAM: XR LEFT HAND COMPLETE, 3 OR MORE VIEWS CLINICAL INDICATION: PAIN TECHNIQUE: Frontal, lateral and oblique views of the left hand. This report was created using [employer] report generation technology. COMPARISON: None. FINDINGS: BONES/JOINTS: Unremarkable. No acute fracture. No subluxation. Normal alignment. Preservation of the joint space. No sclerotic or destructive changes observed. SOFT TISSUES: Unremarkable. No soft tissue swelling or gas. No radiopaque foreign body. RAD/Hand Min 3 Views IMPRESSION: No acute abnormality. Electronically Signed: Masoud Aguiar MD at 15:21 EDT Reading Location ID and State: [facility] / [place] Tel , Service support , CC: RONY Bowen; Dr. Jose Wilkes MD Commercial Driver: Signed Normal [facility] Hand Min 3 Views [facility] Imaging Services [address] [place] [address] Hand Min 3 Views MR#: [id number] Acct: [id number] Name: JENNIFER CHANDRA Rep #: [id number] : 1985 M 36 From: Masoud Aguiar MD PCP: Dr. Jose Wilkes MD Status: REG CLI Study: Hand Min 3 Views Date of Exam: 01/22/22 Exam# [id number] Ordering Dr: Gema Bowen NP EXAM: XR RIGHT HAND COMPLETE, 3 OR MORE VIEWS CLINICAL INDICATION: PAIN TECHNIQUE: Frontal, lateral and oblique views of the right hand. This report was created using Sermo report generation technology. COMPARISON: None. FINDINGS: BONES/JOINTS: Unremarkable. No acute fracture. No subluxation. Normal alignment. Preservation of the joint space. No sclerotic or destructive changes observed. SOFT TISSUES: Unremarkable. No soft tissue swelling or gas. No radiopaque foreign body. RAD/Hand Min 3 Views IMPRESSION: No acute abnormality. Electronically Signed: Masoud Aguiar MD at 15:21 EDT , CC: RONY Bowen; Dr. Jose Wilkes MD Commercial Driver[facility] ) JENNIFER CHANDRA ([id number]) 1985 M Date Time Provider Department 12/12/21 3:30 PM GARETH BOYER [facility] During your visit today, we recorded the following information about you: Temperature Pulse Respiration Blood pressure 98.5 degrees 94/minute 16/minute 122/80 Weight 130.6 kg Gareth Boyer PA-C 12/12/2021 5:13 PM Signed This note was created using [employer]. Subjective Jennifer Chandra is a 36 year old male. HPI Patient presents with a chief complaint of acid reflux flare. He is on omeprazole daily. He states when he lays down at night he feels the acid in his throat and causes him to cough. He has been seen for this 1 other time as well. He states he had seen GI in 2014 and had a scope which he states was normal at that time. Denies any abdominal pain. No fever. No vomiting. He tries to avoid spicy food. He does take ibuprofen every once in a while. Review of Systems Constitutional: Negative. HENT: Negative. Gastrointestinal: Acid reflux All other systems reviewed and are negative. History reviewed. No pertinent past medical history. Current Outpatient Medications Medication Sig Dispense Refill - ergocalciferol, vitamin D2, (VITAMIN D2 ORAL) Take by mouth. - Lactobacillus acidophilus (PROBIOTIC ORAL) Take by mouth. - pantoprazole DR (PROTONIX) 40 mg tablet Take 1 tablet by mouth daily before breakfast. Take on empty stomach, 1/2 hr before meal. 30 tablet 2 - sucralfate (CARAFATE) 1 gram tablet Take 1 tablet by mouth four times daily for 7 days. 28 tablet 0 - Brompheniramine-Pseud oeph-DM (BROMFED DM) 2-30-10 mg/5 mL syrup Take 5 mL by mouth four times daily as needed. (Patient not taking: Reported on 12/12/2021 ) 120 mL 0 - predniSONE (DELTASONE) 20 mg tablet 2 pills daily x 3 days, then 1 pill daily x 4 days, then 1/2 pill daily x 4 days. (Patient not taking: Reported on 12/28/2019 ) 12 tablet 0 - Brompheniramine-Pseud oeph-DM (BROMFED DM) 2-30-10 mg/5 mL syrup Take 10 mL by mouth four times daily as needed. (Patient not taking: Reported on 01/10/2019 ) 200 mL 0 - methylPREDNISolone (MEDROL, MEERA,) 4 mg Dose-Pack Take as directed (Patient not taking: Reported on 01/10/2019 ) 1 Package 0 - loratadine (CLARITIN) 10 mg tablet Take 1 tablet by mouth once daily. (Patient not taking: Reported on 01/10/2019 ) 30 tablet 0 - naproxen(NAPROSYN 500 MG TAB) Take one(1) tablet twice daily as needed for pain, with food. (Patient not taking: ADMINISTER WITH FOOD ) 0 - ranitidine hcl(ZANTAC 300 MG TAB) Take one(1) tablet twice daily. (Patient not taking: ) 60 0 No current facility-administered medications for this visit. No past surgical history on file. No family history on file. Social History Tobacco Use - Smoking status: Never Smoker - Smokeless tobacco: Never Used Vaping Use - Vaping Use: Never used Substance Use Topics - Alcohol use: Not on file - Drug use: Not on file Objective BP 122/80 Pulse 94 Temp 36.9 ?C (98.5 ?F) (Tympanic) Resp 16 Wt 130.6 kg (288 lb) SpO2 98% Physical Exam Vitals reviewed. Constitutional: Appearance: Normal appearance. HENT: Head: Normocephalic and atraumatic. Mouth/Throat: Mouth: Mucous membranes are moist. Pharynx: Oropharynx is clear. No oropharyngeal exudate or posterior oropharyngeal erythema. Cardiovascular: Rate and Rhythm: Normal rate and regular rhythm. Heart sounds: Normal heart sounds. Pulmonary: Effort: Pulmonary effort is normal. Breath sounds: Normal breath sounds. Abdominal: General: Abdomen is flat. Bowel sounds are normal. Palpations: Abdomen is soft. Tenderness: There is no abdominal tenderness. There is no guarding or rebound. Skin: General: Skin is warm and dry. Neurological: Mental Status: He is alert. Assessment and Plan ASSESSMENT/PLAN: 1. GERD without esophagitis - ICD9: 530.81, ICD10: K21.9 I will switch his omeprazole to pantoprazole. Also given Carafate for a week. We will have him follow-up with GI if not improving. Patient agreeable. Gareth Boyer PA-C Referring Provider: SELF [200] Allergies As of Date: 12/12/2021 Noted Allergy Reaction NEOSPORIN (HYDROCORTISONE) 01/08/2018 7 - Swelling Comments: eyes and lips swell NEOSPORIN (NEOMYCIN-BACITRACIN- PO*03/16/2010 Date Reviewed: 12/12/2021 Reviewed by: Erica Holland LPN - Fully Assessed Reason for Visit: acid reflux [Other] Cmt: x 2 days and causing him to cough Primary Visit Diagnosis:GERD without esophagitis [K21.9] Order(s):pantoprazole DR (PROTONIX) 40 mg tabletTake 1 tablet by mouth daily before breakfast. Take on empty stomach, 1/2 hr before meal.Disp: 30 tabletRfl: 2 sucralfate (CARAFATE) 1 gram tabletTake 1 tablet by mouth four times daily for 7 days.Disp: 28 tabletRfl: 0 CONSULT TO GASTROENTEROLOGY [9010] Order #: [id number]: 1 FUTURE Prescriptions as of (more content not included)... Normal [facility] XR Chest PA and Lateralon IMPRESSION: No acute radiographic abnormality. Commercial Driver: OTILIO Transcribe Date/Time: Aug 02 2021 1:52P Dictated by : PADMINI ARREAGA MD This examination was interpreted and the report reviewed and electronically signed by: PADMINI ARREAGA MD on Aug 02 2021 1:53PM [facility] DIVISION OF RADIOLOGY * * *Final Report* * * DATE OF EXAM: Aug 02 2021 1:48PM WOX 5291 - XR CHEST 2V FRONTAL/LAT / PROCEDURE REASON: multiple diagnoses * * * * Physician Interpretation * * * * EXAMINATION: CHEST RADIOGRAPH (2 VIEW FRONTAL & LATERAL) CLINICAL HISTORY: Cough SOB (shortness of breath) MQ: XC2_6 EXAM DATE/TIME: 08/02/2021 1:48 PM COMPARISON: Chest x-ray on 02/23/2007 is not available for comparison. RESULT: Lines, tubes, and devices: None. Lungs and pleura: No consolidation. No lung mass. No pleural effusion. No pneumothorax. Cardiomediastinal silhouette: There appears to be borderline cardiomegaly. The mediastinal contour is otherwise unremarkable. Bones and soft tissues: Unremarkable. DIVISION OF RADIOLOGY Provider, [facility] - 08/02/2021 * * *Final Report* * * DATE OF EXAM: Aug 02 2021 1:48PM WOX 5291 - XR CHEST 2V FRONTAL/LAT / PROCEDURE REASON: multiple diagnoses * * * * Physician Interpretation * * * * EXAMINATION: CHEST RADIOGRAPH (2 VIEW FRONTAL & LATERAL) CLINICAL HISTORY: Cough SOB (shortness of breath) MQ: XC2_6 EXAM DATE/TIME: 08/02/2021 1:48 PM COMPARISON: Chest x-ray on 02/23/2007 is not available for comparison. RESULT: Lines, tubes, and devices: None. Lungs and pleura: No consolidation. No lung mass. No pleural effusion. No pneumothorax. Cardiomediastinal silhouette: There appears to be borderline cardiomegaly. The mediastinal contour is otherwise unremarkable. Bones and soft tissues: Unremarkable. IMPRESSION IMPRESSION: No acute radiographic abnormality. Commercial Driver: PSCElizabeth Transcribe Date/Time: Aug 02 2021 1:52P Dictated by : PADMINI ARREAGA MD This examination was interpreted and the report reviewed and electronically signed by: PADMINI ARREAGA MD on Aug 02 2021 1:53PM EST [facility] Radiology Study observation (narrative) [facility] XR Chest PA and LateralOrder ed By: [facility] Provider on 08-02-2021 [facility] Virtual Office Visiton 05-[address] [facility] [address] [place] [address] OFFICE VISIT Date of Service: 05/30/21 MR#: [id number] Acct: [id number] Patient: JENNIFER CHANDRA Rep #: [id number] : 1985 Provider: RONY sharma Age/Sex: 35/M Location: [facility] Status: Signed Intake Vital Signs 05/30/21 13:33 Height 6 ft Weight: 274 lb BMI 37.1 Intake Visit Reasons: COVID-19 Allergies bacitracin [From Neosporin (yaw-rcy-pvnys)] Allergy (Verified 11/05/18 05:03) Angioedema neomycin [From Neosporin (pna-dac-wqjuw)] Allergy (Verified 11/05/18 05:03) Angioedema polymyxin B [From Neosporin (tqc-ide-mquqa)] Allergy (Verified 11/05/18 05:03) Angioedema PFSH Social History Smoking Status: Never smoker HPI HPI Details: Patient was informed that this visit will be billed to patient. This visit was conducted during COVID-19 pandemic. JENNIFER CHANDRA, is a 35 M who presents to the office today forStatement read to the patient: This telehealth visit is being offered during our stay at home measures in response to the pandemic. It is subject to an office visit charge. The patient consents to continue. Symptom onset occurred: 05/28 Positive COVID-19 test occurred:05/28 COVID vaccine administered: no on oxygen or needed to titrate up?: no The FDA has authorized the emergency use of monoclonal antibody treatment (bamlanivimab/etesevi mab or casirivimab/imdevimab ) for mild to moderate COVID-19 in adults and pediatric patients with positive results of direct SARS???Cov???2 viral testing ages 12 and older, at least 40 kg, who were not at high risk for progressing to severe COVID-19 and or hospitalization. The significant known and potential risks (allergic reactions or side effects from injection including brief pain, bleeding, bruising of the skin, soreness, swelling, possible infection at the infusion site) and benefits (decrease chance of progression to severe COVID-19) of a monoclonal antibody infusion, and the extent to which such potential risks and benefits are unknown. Patients treated with monoclonal antibody infusion should continue to self-isolate and use infection control measures (such as wear mask, isolate, social distance, avoid sharing personal items, clean and disinfect high touch surfaces, and frequent handwashing) according to the CDC guidelines. The fact sheet for patients, parents and caregivers will be provided prior to the administration of the medication. No drugs are approved by the FDA at this time to treat outpatients with mild or moderate symptoms of COVID-19. The following information was communicated to the patient or caregiver: Monoclonal antibody infusion is not an FDA approved drug. The FDA has authorized the emergency use of monoclonal antibody therapy. The patient had the option to refuse or accept treatment with monoclonal antibody therapy. The patient was informed that the number of people treated with monoclonal antibody therapy at this time is small. The potential benefits and the potential risks of monoclonal antibody therapy are not fully known. Potential benefits of monoclonal antibody include a reduced risk of progressing to severe COVID-19 infection. Potential risks or side effects of monoclonal antibody therapy include allergic reactions, side effects from injection including brief pain, bleeding, bruising of the skin, soreness, swelling, possible infection at the infusion site. The patient stated understanding of this information communicated and wished to proceed with monoclonal antibody infusion therapy. Current symptoms include: Shortness of breath, cough (productive versus nonproductive), fever, headache, nausea/vomiting, body aches, chills, general malaise, loss of taste or smell, sneezing, nasal congestion. The patient states understanding of this information communicated and wishes to proceed with monoclonal antibody infusion therapy. Patient agrees to receive either balanivimab/etesvimab or casirivimab/imdevimab upon availability. Positive test: 05/28 SX onset: 05/28 SX: cough, congestion, headache, sore throat Vaccine: no oxygen: no Qualifier: BMI ROS Const Constitutional: Positive for headache(s) ENT ENT: Positive for nasal congestion, headache(s) and sore throat Neuro Neurology: Positive for headache(s) Exam Const General: cooperative and no acute distress Resp Effort Inspection: normal respiratory effort and able to speak in complete sentences Neuro General: patient alert, patient awake and patient oriented x3 Cognition: normal cognition Speech: speech normal Psych Mental Status: mental status grossly normal Mood: congruent mood Attitude: cooperative Thought Process: normal Thought Content: normal Judgment: judgment good Details: Details:: Exam was limited due to phone visi (more content not included)... Normal [facility] Abdomen Limitedon 02-24-2021 Abdomen Limited [facility] Services [address] [place] [id number] Abdomen Limited MR#: [id number] Acct: [id number] Name: JENNIFER CHANDRA Rep #: [id number] : 1985 M 35 From: Andrea Harper MD PCP: Dr. Jose Wilkes MD Status: REG CLI Study: Abdomen Limited Date of Exam: 02/24/21 Exam# [id number] Ordering Dr: Ismael Barrow MD STUDY: ABDOMINAL ULTRASOUND - RIGHT UPPER QUADRANT REASON FOR VISIT: Male, 35 years old RUQ ABD PAIN/COLICKY AND POSTPANDIAL TECHNIQUE: Ultrasound evaluation of the right upper quadrant was performed with real-time and static mack-scale imaging. TECHNICAL QUALITY: Adequate. COMPARISON: 03/27/2018 FINDINGS: Liver: The liver measures 19.5 cm. There is increased echogenicity consistent with fatty infiltration. The bile ducts are within normal limits. There is hepatic color flow. The direction of portal flow is hepatopetal. There is no demonstrated mass lesion. Gallbladder: Normal distended gallbladder. The gallbladder wall measures 2 mm. There is a negative sonographic Rojas''s sign. There is no pericholecystic fluid. There are no gallstones. Common Bile Duct (C.B.D.): The common bile duct measures 4 mm. Pancreas: Normal size of the head, body and tail of the pancreas. There is normal echogenicity of the pancreas. There is no demonstrated pancreatic mass or cyst. Right Kidney: Normal size of the right kidney. The right kidney measures 11.3 cm. Normal renal cortex. The right cortex measures 1.7 cm. There is no demonstrated renal mass or cyst. There is no right hydronephrosis. US/Abdomen Limited IMPRESSION: Fatty infiltration of the liver. Electronically Signed: Andrea Harper MD at 11:06 EDT Tel , Service support , CC: Dr. Ismael Barrow MD; Dr. Jose Wilkes MD Commercial Driver: Signed Normal [facility] CBC W/Diff, Automatedon 06-2 Absolute Lymph 2.39 X10 3/uL Normal 0.83-4.51 [facility] Comment on above: Performed By: #### L 3890.6300, L501.6710, L501.2450, L101.9900, L100.0100, L500.4050 #### [facility] [address] [place], [address] Absolute Neut 7.3 X10 3/uL Normal 2.0-7.7 [facility] Comment on above: Performed By: #### L 3890.6300, L501.6710, L501.2450, L101.9900, L100.0100, L500.4050 #### [facility] [address] [place], [address] Basophils/100 WBC (Bld) 0.3 % Normal 0-1 [facility] Comment on above: Performed By: #### L 3890.6300, L501.6710, L501.2450, L101.9900, L100.0100, L500.4050 #### [facility] [address] [place], [address] Eosinophils/100 WBC (Bld) 4.3 % Normal 0-5 [facility] Comment on above: Performed By: #### L 3890.6300, L501.6710, L501.2450, L101.9900, L100.0100, L500.4050 #### [facility] [address] [place], [address] Erythrocyte distribution width (RBC) [Ratio] 12.7 % Normal 11.6-14.6 [facility] Comment on above: Performed By: #### L 3890.6300, L501.6710, L501.2450, L101.9900, L100.0100, L500.4050 #### [facility] [address] [place], [address] Hematocrit (Bld) [Volume fraction] 48.2 % Normal 40-54 [facility] Comment on above: Performed By: #### L 3890.6300, L501.6710, L501.2450, L101.9900, L100.0100, L500.4050 #### [facility] [address] [place], [address] Hemoglobin (Bld) [Mass/Vol] 15.5 g/dL Normal 13.0-16.5 [facility] Comment on above: Performed By: #### L 3890.6300, L501.6710, L501.2450, L101.9900, L100.0100, L500.4050 #### [facility] [address] [place], [address] IG% 0.300 Normal 0.0-0.9 [facility] Comment on above: Result Comment: IG% - Immature Granulocytes (promyelocytes, myelocytes and metamyelocytes) > 1% indicates that a LEFT SHIFT is Present. Performed By: #### L 3890.6300, L501.6710, L501.2450, L101.9900, L100.0100, L500.4050 #### [facility] [address] [place], [address] Lymphocytes/100 WBC (Bld) 21.9 % Normal 19-41 [facility] Comment on above: Performed By: #### L 3890.6300, L501.6710, L501.2450, L101.9900, L100.0100, L500.4050 #### [facility] [address] [place], [address] MCH (RBC) [Entitic mass] 28.7 pg Normal 27.0-32.0 [facility] Comment on above: Performed By: #### L 3890.6300, L501.6710, L501.2450, L101.9900, L100.0100, L500.4050 #### [facility] [address] [place], [address] MCHC (RBC) [Mass/Vol] 32.2 g/dL Normal 32-36 [facility] Comment on above: Performed By: #### L 3890.6300, L501.6710, L501.2450, L101.9900, L100.0100, L500.4050 #### [facility] [address] [place], [address] MCV (RBC) [Entitic vol] 89.3 fL Normal 80-94 [facility] Comment on above: Performed By: #### L 3890.6300, L501.6710, L501.2450, L101.9900, L100.0100, L500.4050 #### [facility] [address] [place], [address] Monocytes/100 WBC (Bld) 6.8 % Normal 0-10 [facility] Comment on above: Performed By: #### L 3890.6300, L501.6710, L501.2450, L101.9900, L100.0100, L500.4050 #### [facility] [address] [place], [address] Neutrophils/100 WBC (Bld) 66.4 % Normal 47-70 [facility] Comment on above: Performed By: #### L 3890.6300, L501.6710, L501.2450, L101.9900, L100.0100, L500.4050 #### [facility] [address] [place], [address] Nucleated RBC (Bld) [#/Vol] 0 10*3/uL Normal 0-5 [facility] Comment on above: Performed By: #### L 3890.6300, L501.6710, L501.2450, L101.9900, L100.0100, L500.4050 #### [facility] [address] [place], [address] Platelet mean volume (Bld) [Entitic vol] 12.5 fL High 6.2-12.0 [facility] Comment on above: Performed By: #### L 3890.6300, L501.6710, L501.2450, L101.9900, L100.0100, L500.4050 #### [facility] [address] [place], [address] Platelets (Bld) [#/Vol] 263 10*3/uL Normal 150-450 [facility] Comment on above: Performed By: #### L 3890.6300, L501.6710, L501.2450, L101.9900, L100.0100, L500.4050 #### [facility] [address] [place], [address] RBC (Bld) [#/Vol] 5.40 10*6/uL Normal 4.6-6.2 [facility] Comment on above: Performed By: #### L 3890.6300, L501.6710, L501.2450, L101.9900, L100.0100, L500.4050 #### [facility] [address] [place], [address] RDW SD 41.3 fl Normal 35.1-43.9 [facility] Comment on above: Performed By: #### L 3890.6300, L501.6710, L501.2450, L101.9900, L100.0100, L500.4050 #### [facility] [address] [place], [address] WBC (Bld) [#/Vol] 10.9 10*3/uL Normal 4.4-11.0 [facility] Comment on above: Performed By: #### L 3890.6300, L501.6710, L501.2450, L101.9900, L100.0100, L500.4050 #### [facility] [address] [place], [address] CRPon 02-20-2021 C-REACTIVE PROT 4.08 mg/L High 0.0-3.0 [facility] Comment on above: Result Comment: C-Re active Protein (CRP) provides useful information for the diagnosis, therapy and monitoring of inflammatory processes and associated diseases. For the evaluation of Relative Risk for Cardiovascular Disease, a High Sensitivity CRP (HSCRP) should be ordered. Performed By: #### L 3890.6300, L501.6710, L501.2450, L101.9900, L100.0100, L500.4050 #### [facility] [address] [place], [address] Comprehensive Metabolic Prof ilon 02-20-2021 Albumin [Mass/Vol] 3.5 g/dL Normal 3.2-5.0 [facility] Comment on above: Performed By: #### L 3890.6300, L501.6710, L501.2450, L101.9900, L100.0100, L500.4050 #### [facility] [address] [place], [address] Albumin/Globulin [Mass ratio] 0.8 {ratio} Low 0.9-2.4 [facility] Comment on above: Performed By: #### L 3890.6300, L501.6710, L501.2450, L101.9900, L100.0100, L500.4050 #### [facility] [address] [place], [address] ALK P 67 U/L Normal 45-117 [facility] Comment on above: Performed By: #### L 3890.6300, L501.6710, L501.2450, L101.9900, L100.0100, L500.4050 #### [facility] [address] [place], [address] ALT [Catalytic activity/Vol] 130 U/L High 16-61 [facility] Comment on above: Performed By: #### L 3890.6300, L501.6710, L501.2450, L101.9900, L100.0100, L500.4050 #### [facility] [address] [place], [address] AST [Catalytic activity/Vol] 62 U/L High 15-37 [facility] Comment on above: Performed By: #### L 3890.6300, L501.6710, L501.2450, L101.9900, L100.0100, L500.4050 #### [facility] [address] [place], [address] Bilirubin [Mass/Vol] 0.50 mg/dL Normal 0.20-1.00 [facility] Comment on above: Result Comment: For patients on eltrombopag therapy, use of Dimension Fisher TBIL is not recommended. Performed By: #### L 3890.6300, L501.6710, L501.2450, L101.9900, L100.0100, L500.4050 #### [facility] [address] [place], [address] BUN/CRE 14.9 RATIO Normal 10-20 [facility] Comment on above: Performed By: #### L 3890.6300, L501.6710, L501.2450, L101.9900, L100.0100, L500.4050 #### [facility] [address] [place], [address] CA,Total 8.8 mg/dL Normal 8.5-10.1 [facility] Comment on above: Performed By: #### L 3890.6300, L501.6710, L501.2450, L101.9900, L100.0100, L500.4050 #### [facility] [address] [place], [address] Chloride [Moles/Vol] 104 mmol/L Normal 98-107 [facility] Comment on above: Performed By: #### L 3890.6300, L501.6710, L501.2450, L101.9900, L100.0100, L500.4050 #### [facility] [address] [place], [address] CO2 [Moles/Vol] 28.0 mmol/L Normal 21.0-32.0 [facility] Comment on above: Performed By: #### L 3890.6300, L501.6710, L501.2450, L101.9900, L100.0100, L500.4050 #### [facility] [address] [place], [address] Creatinine [Mass/Vol] 0.94 mg/dL Normal 0.70-1.30 [facility] Comment on above: Result Comment: The validity of the calculated GFR GFRAA in patients over 70 years has not been determined. Clinical correlation is essential. Performed By: #### L 3890.6300, L501.6710, L501.2450, L101.9900, L100.0100, L500.4050 #### [facility] [address] [place], [place], [phone] (006) EST GFR - AA 117 mL/min Normal >60 [facility] Comment on above: Result Comment: Afri can Stateless GFR Calc Performed By: #### L 3890.6300, L501.6710, L501.2450, L101.9900, L100.0100, L500.4050 #### [facility] [address] [place], [place], [phone] (068) GAP 8 Normal 5-15 [facility] Comment on above: Performed By: #### L 3890.6300, L501.6710, L501.2450, L101.9900, L100.0100, L500.4050 #### [facility] [address] [place], [place], [phone] (357) GFR/1.73 sq M.predicted among non-blacks MDRD (S/P/Bld) [Vol rate/Area] 97 mL/min/{1.73_m2} Normal >60 [facility] Comment on above: Result Comment: Non- GFR Calc Performed By: #### L 3890.6300, L501.6710, L501.2450, L101.9900, L100.0100, L500.4050 #### [facility] [address] [place], [place], [phone] (955) Globulin (S) [Mass/Vol] 4.2 g/dL Normal 2.2-4.2 [facility] Comment on above: Performed By: #### L 3890.6300, L501.6710, L501.2450, L101.9900, L100.0100, L500.4050 #### [facility] [address] [place], [address] Glucose [Mass/Vol] 102 mg/dL Normal 74-106 [facility] Comment on above: Result Comment: Fast ing Glucose result from 100 to 125 mg/dL suggests IMPAIRED HOMEOSTASIS per A.D.A. criteria. Please note revised GLUCOSE reference range effective 2017. Performed By: #### L 3890.6300, L501.6710, L501.2450, L101.9900, L100.0100, L500.4050 #### [facility] [address] [place], [address] Potassium [Moles/Vol] 4.1 mmol/L Normal 3.5-5.1 [facility] Comment on above: Performed By: #### L 3890.6300, L501.6710, L501.2450, L101.9900, L100.0100, L500.4050 #### [facility] [address] [place], [address] Sodium [Moles/Vol] 140 mmol/L Normal 136-145 [facility] Comment on above: Performed By: #### L 3890.6300, L501.6710, L501.2450, L101.9900, L100.0100, L500.4050 #### [facility] [address] [place], [address] T PROT 7.7 g/dL Normal 6.4-8.2 [facility] Comment on above: Performed By: #### L 3890.6300, L501.6710, L501.2450, L101.9900, L100.0100, L500.4050 #### [facility] [address] [place], [address] Urea nitrogen [Mass/Vol] 14 mg/dL Normal 7-18 [facility] Comment on above: Performed By: #### L 3890.6300, L501.6710, L501.2450, L101.9900, L100.0100, L500.4050 #### [facility] [address] [place], [place], [address] Erythrocyte Sed Rateon 02-20 SED RATE 17 mm/hr Normal 0-20 [facility] Comment on above: Performed By: #### L 3890.6300, L501.6710, L501.2450, L101.9900, L100.0100, L500.4050 #### [facility] [address] [place], [place], [address] Hepatitis C Antibodyon 02-20 Hepatitis C Ab Non-Reactive Normal Nonreactive [facility] Comment on above: Result Comment: Non Reactive: < 0.8 Equivocal: >/= 0.8 to < 1.0 Reactive: >/= 1.0 The CDC recommends that a reactive/equivocal HCV antibody result be followed up by the HCV Nucleic Acid Amplification test (168451) Performed By: #### L 3890.6300, L501.6710, L501.2450, L101.9900, L100.0100, L500.4050 #### [facility] [address] [place], [place], [address] Lipaseon 02-20-2021 Lipase [Catalytic activity/Vol] 124 U/L Normal 73-393 [facility] Comment on above: Performed By: #### L 3890.6300, L501.6710, L501.2450, L101.9900, L100.0100, L500.4050 #### [facility] [address] [place], [place], [address] Vital Signs Date Time Vital Sign Value Performing Clinician Polo mercer 12-18-2022 11:30-0400 Body temperature 98.6 [degF] Jane Matamoros APRN.LABOR AND DELIVERY NURSE Work Phone: [facility] 12-18-2022 11:30-0400 Body weight 133.81 kg Jane Praisler-Wood BATTERBOARD SETTER.LABOR AND DELIVERY NURSE Work Phone: [facility] 12-18-2022 11:30-0400 Diastolic blood pressure 84 mm[Hg] Jane Praisler-Wood BATTERBOARD SETTER.LABOR AND DELIVERY NURSE Work Phone: [facility] 12-18-2022 11:30-0400 Heart rate 96 /min Jane Praisler-Wood BATTERBOARD SETTER.LABOR AND DELIVERY NURSE Work Phone: [facility] 12-18-2022 11:30-0400 Respiratory rate 16 /min Jane Praisler-Wood BATTERBOARD SETTER.LABOR AND DELIVERY NURSE Work Phone: [facility] 12-18-2022 11:30-0400 SaO2% (BldA) [Mass fraction] 98 % Jane Praisler-Wood BATTERBOARD SETTER.LABOR AND DELIVERY NURSE Work Phone: [facility] 12-18-2022 11:30-0400 Systolic blood pressure 136 mm[Hg] Jane Praisler-Wood BATTERBOARD SETTER.LABOR AND DELIVERY NURSE Work Phone: [facility] 08-20-2022 18:15-0500 Body temperature 101.1 [degF] Justin Doherty MD Work Phone: [facility] 08-20-2022 18:15-0500 Body weight 129.91 kg Justin Doherty MD Work Phone: [facility] 08-20-2022 18:15-0500 Diastolic blood pressure 90 mm[Hg] Justin Doherty MD Work Phone: [facility] 08-20-2022 18:15-0500 Heart rate 107 /min Justin Doherty MD Work Phone: [facility] 08-20-2022 18:15-0500 Respiratory rate 22 /min Justin Doherty MD Work Phone: [facility] 08-20-2022 18:15-0500 SaO2% (BldA) [Mass fraction] 99 % Justin Doherty MD Work Phone: [facility] 08-20-2022 18:15-0500 Systolic blood pressure 128 mm[Hg] Justin Doherty MD Work Phone: [facility] 12-12-2021 15:31-0400 Body temperature 98.49 [degF] Gareth Athy PA-C Work Phone: [facility] 12-12-2021 15:31-0400 Body weight 130.64 kg Gareth Athy PA-C Work Phone: [facility] 12-12-2021 15:31-0400 Diastolic blood pressure 80 mm[Hg] Gareth Athy PA-C Work Phone: [facility] 12-12-2021 15:31-0400 Heart rate 94 /min Gareth Athy PA-C Work Phone: [facility] 12-12-2021 15:31-0400 Respiratory rate 16 /min Gareth Athy PA-C Work Phone: [facility] 12-12-2021 15:31-0400 SaO2% (BldA) [Mass fraction] 98 % Gareth Athy PA-C Work Phone: [facility] 12-12-2021 15:31-0400 Systolic blood pressure 122 mm[Hg] Gareth Athy PA-C Work Phone: [facility] Encounters Encounter Date Encounter Type Care Provider Facility Start: 02-10-2025 End: 02-14-2025 ambulatory CESARIO HILL APRN-ALEXUS Facility:[facility] Start: 02-10-2025 End: 02-14-2025 Outreach Lab CESARIO HILL APRN-LABOR AND DELIVERY NURSE [facility] Start: 09-28-2023 End: 09-28-2023 Patient encounter procedure CESARIO HILL APRN-LABOR AND DELIVERY NURSE [facility] Start: 08-29-2023 End: 08-30-2023 ambulatory RAMIRO DO-Allison Facility:B Start: 12-18-2022 End: 12-18-2022 Patient encounter procedure Jane GarciaGelyJuan Carlos LABOR AND DELIVERY NURSE Work Phone: [facility] Comment on above: Sore throat (Primary Dx) Start: 08-21-2022 Telephone encounter Elo Gonzalez LABOR AND DELIVERY NURSE Work Phone: [facility] Comment on above: Results Start: 08-20-2022 End: 08-20-2022 ambulatory [facility] Facility:[facility] Start: 08-20-2022 End: 08-20-2022 Patient encounter procedure Justin Doherty MD Work Phone: [facility] Comment on above: Sore throat (Primary Dx); Influenza-like illness Start: 01-22-2022 End: 01-22-2022 Patient encounter procedure [facility] Start: 12-12-2021 End: 12-12-2021 ambulatory [facility] Facility:[facility] Start: 12-12-2021 End: 12-12-2021 Patient encounter procedure Gareth Boyer PA-C Work Phone: [facility] Comment on above: GERD without esophag itis (Primary Dx) Start: 08-02-2021 End: 08-02-2021 Subsequent hospital visit by physician Al [facility] Minerva Work Phone: Radiology Comment on above: Cough [R05.9] Procedures Date Procedure Procedure Detail Performing Clinician Start: 12-18-2022 STREP A MOLECULAR (POC) Allyson Moreno APRN.LABOR AND DELIVERY NURSE Work Phone: Start: 08-20-2022 STREP A MOLECULAR (POC) Justin Doherty MD Work Phone: Start: 01-22-2022 Plain x-ray of hand Start: 08-02-2021 Radiologic exam ches t 2 views Allyson Moreno APRN.LABOR AND DELIVERY NURSE Work Phone: Start: 09-02-2000 Surgical removal of impacted third molar tooth CESARIO HILL OXANA-LABOR AND DELIVERY NURSE Comment on above: all 4 Plan of Treatment Date Care Activity Detail Author Start: 05-03-2024 Covid-19 Vaccine ( season) Covid-19 Vaccine ( season) [facility] Start: 05-03-2024 Influenza vaccination Influenza Vacc ine (#1) [facility] Start: 05-03-2023 Influenza vaccination INFLUENZ A (Season Ended) [facility] Start: 09-02-2022 DEPRESSION ASSESSMENT DEPRESSION ASS [facility] Start: 08-20-2022 End: 09-03-2022 Influenza virus A and B RNA and SARS-CoV-2 (COVID-19) N gene panel - Respiratory specimen by [facility]I with probe detection COVID WITH FLUA+B, ROUTINE Microbiology Routine Sore throat Influenza-like illness Expected: 08/20/2022, Expires: 09/03/2022 [facility] Work Phone: Comment on above: Expected: 08/20/2022 , Expires: 09/03/2022 Start: 05-03-2022 Influenza vaccination [facility] Start: 09-02-2021 DE[facility] Start: 2020 Lipid panel Lipid Screening [facility] Start: 2020 LIPID SCREEN LIPID SCREEN [facility] Start: 2004 Hepatitis B Vaccine (1 of 3 - 19+ 3-dose series) Hepatitis B Vaccine (1 of 3 - 19+ 3-dose series) [facility] Start: 2004 Urine microalbumin profile [facility] Start: 2003 Anxiety Screening Anxiety Screening [facility] Start: 2003 [facility]: [facility] HEPAT[facility]IS C SCREENING HEPATITIS C [facility] Start: 2003 Hepatitis C screening Hepatitis C [facility] Start: 2003 HIV SCREENING HIV SCREENING [facility] Start: 2003 HIV screening HIV Screening [facility] Start: 1997 Adult depression screening assessment DEPRESSION SCREENING [facility] Start: 1990 COVID-19 VACCINE (1) COVID-19 VACCIN E (1) [facility] Start: 01-18-1986 COVID-19 VACCINE (#1) COVID-19 VACCI NE (#1) [facility] Start: 1985 HEPATITIS B (1 of 3 - 3-dose series) HEPATITIS B (1 of 3 - 3-dose series) [facility] Immunizations Immunization Date Immunization Notes Care Provider Óscar arciniega 05-29-2017 tetanus toxoid, redu adri diphtheria toxoid, and acellular pertussis vaccine, adsorbed CESARIO HILL BATTERBOARD SETTER-LABOR AND DELIVERY NURSE [facility] Payers Date Payer Category Payer Private Health Insurance [id number] 2025 Self-pay [id number] 2020 Unknown [employer] C[employer] PPO OOS [id number] 2020-Present [phone] [address] [place] [address] PPO [id number] 2020 Unknown [id number] 2020 Unknown [employer] CARD PPO OOS [id number] 2020-Present [phone] [address] [place] [address] PPO [id number] 2014 Unknown [id number] 1985 Unknown [id number] 1985 Unknown [id number] Social History Date Type Detail Facility Start: 01-08-2018 End: 02-10-2025 Tobacco smoking status WYIS Never smoked tobacco [facility] Work Phone: Start: 01-08-2018 End: 08-20-2022 Tobacco use and exposure Smokeless tobacco non-user [facility] Work Phone: Start: 1985 Sex Assigned At Not on file [facility] Start: 05-30-2021 Tobacco smoking stat us WYIS Unknown if ever smoked [facility] Work Phone: Start: 1985 Sex Assigned At Male [facility] Work Phone: Sex Assigned At [facility] Start: 08-08-2020 End: 08-02-2021 History of Social function [facility] Start: 08-08-2020 End: 08-02-2021 Tobacco use panel [facility] National Score (1-100), lower number is lower risk Not on file [facility] Start: 07-03-2021 End: 08-02-2021 Exposure to SARS-CoV-2 (event) Not sure [facility] Start: 11-26-2015 Sex Male (finding) [facility] Clinical Notes 08-02-2021 to 12-18-2022 Patient InstructionsJane Matamoros APRN.[facility] - 12/18/2022 11:36 AM EDTTelephone Encounter - Alis Lara LPN - 08/21/2022 10:10 AM Edgar Doherty MD - 08/20/2022 6:21 PM ESTLaboratory Note Date & Type Note Facility 12-18-2022 Instructions Jane Matamoros APRN.[facility] - 12/18/2022 11:45 AM EDT ASSESSMENT/PLAN: 1. Sore throat - ICD9: 462, ICD10: J02.9 - suspect viral - Alere Strep Test negative, no culture pending - Discussed supportive care treatment with fluids, rest and analgesia. - STREP A MOLECULAR (POC) - Follow-up with your PCP in 3-5 days if symptoms have not improved or sooner if symptoms worsen - Discussed red flags and need for immediate medical evaluation if any occur. - Discussed supportive care treatment with fluids, rest and analgesia. - Discussed expected course of illness Jane Matamoros APRN.LABOR AND DELIVERY NURSE Treatment for Viral Upper Respiratory Tract Infections Your body will kill off the virus by itself. Additionally, you can prime your body's immune system. This may help you get better more quickly. Drink lots of fluids Make sure you are eating well Get plenty of rest We do not have any medications that kill off these viruses. Antibiotics are used to treat bacterial infections; however, they are not active against viral infections. There are some things that might help you feel better, though. Vaporizers, humidifiers, hot showers, and hot fluids help open respiratory and sinus passages Mercer Nasal [place] may offer relief of nasal and head congestion Nahun's Vapor Rub may relieve congestion Tylenol and Advil help control fevers and headaches Salt water gargles help relieve sore throats Chloraceptic spray or throat lozenges may also help relieve sore throat symptoms Occasionally, viral infections turn into something more serious. You should see your doctor or return to the Urgent Care if: You have fevers for longer than five days You have fevers above 102 degrees You are still sick after 10 days You have shortness of breath or wheezing After several days you are getting worse rather than better documented in this encounter [facility] 12-18-2022 History of Present illness Narrative Subjective HPI Jennifer Chandra is a 37 year old male who presents with 3 days of sore throat, cough, headache, nasal congestion. He had some chills and body aches yesterday. He has not had any sick contacts. He has been taking Shandra [place] Plus at home. Review of Systems Constitutional: Positive for chills. Negative for fever. HENT: Positive for congestion and sore throat. Negative for ear pain. Respiratory: Positive for cough. Negative for shortness of breath. Cardiovascular: Negative for chest pain. Musculoskeletal: Positive for myalgias. Neurological: Positive for headaches. BP 136/84 Pulse 96 Temp 37 C (98.6 F) (Tympanic) Resp 16 Wt 133.8 kg (295 lb) SpO2 98% No past medical history on file. No past surgical history on file. ALLERGIES Bacitracin, Neosporin [Hydrocortisone], and Neosporin [Zohbozwr-Iyesefncxg-Lisiutwvz] MEDICATIONS Omeprazole Magnesium 20 mg tablet Take 20 mg by mouth once daily. ergocalciferol, vitamin D2, (VITAMIN D2 ORAL) Take by mouth. Lactobacillus acidophilus (PROBIOTIC ORAL) Take by mouth. (Patient not taking: Reported on 08/20/2022) No family history on file. Social History Tobacco Use Smoking status: Never Smokeless tobacco: Never Vaping Use Vaping Use: Never used Substance Use Topics Drug use: Never Objective Physical Exam Vitals and nursing note reviewed. Constitutional: Appearance: He is obese. HENT: Right Ear: Tympanic membrane, ear canal and external ear normal. Left Ear: Tympanic membrane, ear canal and external ear normal. Nose: Congestion present. Mouth/Throat: Mouth: Mucous membranes are moist. Pharynx: Uvula midline. Posterior oropharyngeal erythema present. No oropharyngeal exudate. Cardiovascular: Rate and Rhythm: Normal rate and regular rhythm. Heart sounds: Normal heart sounds. Pulmonary: Effort: Pulmonary effort is normal. No respiratory distress. Breath sounds: Normal breath sounds. No wheezing or rales. Musculoskeletal: Cervical back: Neck supple. Lymphadenopathy: Cervical: No cervical adenopathy. Skin: General: Skin is warm and dry. Findings: No erythema or rash. Neurological: Mental Status: He is alert. ASSESSMENT/PLAN: 1. Sore throat - ICD9: 462, ICD10: J02.9 - suspect viral - Alere Strep Test negative, no culture pending - Discussed supportive care treatment with fluids, rest and analgesia. - STREP A MOLECULAR (POC) - Follow-up with your PCP in 3-5 days if symptoms have not improved or sooner if symptoms worsen - Discussed red flags and need for immediate medical evaluation if any occur. - Discussed supportive care treatment with fluids, rest and analgesia. - Discussed expected course of illness Jane Matamoros APRN.ALEXUS documented in this encounter [facility] 08-21-2022 Miscellaneous Notes Pt notified of lab results and provider message. Alis Lara LPN Please notify of negative covid test. INLFUENZA A was POSITIVE Continue comfort measures for symptoms as discussed at visit Any worsening symptoms follow up with PCP or ER. Elo Gonzalez APRN.ALEXUS documented in this encounter [facility] 08-20-2022 Influenza virus A and B RNA and SARS-CoV-2 (COVID-19) N gene panel CHI+probe (Resp) COVID 19 RESULT: SARS-CoV-2 (Agent of COVID-19) Not Detected by RT-PCR or equivalent method. rafa [id number] (ROSEMARY)_EUA This test was developed and its performance characteristics determined by [facility]'s [facility] [place]. This test has been authorized by FDA under an Emergency Use Authorization (EUA). This test has been validated in accordance with the FDA's Guidance Document Policy for Diagnostics Testing in Laboratories Certified to Perform High Complexity Testing under CLIA prior to Emergency use Authorization for Coronavirus Disease 2019 during the Public Health Emergency issued on October 31, 2019. Test performed by [facility], [facility] [place], [address] [place] [address]. INFLUENZA A PCR: Positive for Influenza A by RT-PCR INFLUENZA B PCR: Negative for Influenza B by RT-PCR [facility] Comment on above: Performed By: #### [id number] #### [facility] CLIA [id number] [address] [place] [address] [place] 08-20-2022 Note HNO ID: [id number] Author: Justin Doherty MD Service: ? Author Type: Physician Type: Progress Notes Filed: 08/20/2022 6:45 PM Note Text: Patient presents with: Fatigue: Body aches, fever, sore throat, KELLER x 1 day HPI: Feeling sick today. Positive symptoms: Sore throat, Fever, Body Aches, Malaise, Fatigue, Headache, Cough, nausea Negative symptoms: Nasal Congestion, Rhinorrhea, Vomiting, Diarrhea, OTC: sarahasecezar ribera Has had COVID illness 3 times in the past. MEDICATIONS: Current Outpatient Medications Medication Sig ergocalciferol, vitamin D2, (VITAMIN D2 ORAL) Take by mouth. Omeprazole Magnesium (PRILOSEC OTC) 20 mg tablet Take 20 mg by mouth once daily. Lactobacillus acidophilus (PROBIOTIC ORAL) Take by mouth. (Patient not taking: Reported on 08/20/2022) No current facility-administered medications for this visit. ALLERGIES: ALLERGIES Allergen Reactions Neosporin [Hydrocor* Swelling eyes and lips swell Neosporin [Neomycin* VITALS: BP 128/90 Pulse 107 Temp (!) 38.4 ?C (101.1 ?F) Resp 22 Wt 129.9 kg (286 lb 6.4 oz) SpO2 99% PHYSICAL EXAM: GEN: ill appearing HEENT: PERRL, EOMI, conjunctiva clear Ears: canals clear. TMs without erythema, bulge, or effusion Sinuses: non-tender frontal sinus, non-tender maxillary sinuses Throat: moist mucous membranes, pharyngeal erythema, no exudate Neck: supple, no thyromegaly, no lymphadenopathy HEART: regular rate and rhythm, no murmurs LUNGS: clear to auscultation, no wheezes or crackles, no increased WOB ASSESSMENT/PLAN: 1. Sore throat - ICD9: 462, ICD10: J02.9 (primary diagnosis) - STREP A MOLECULAR (POC)- negative - COVID WITH FLUA+B, ROUTINE 2. Influenza-like illness - ICD9: 487.1, ICD10: J11.1 - suspect influenza, differential includes COVID-19. - Discussed supportive care treatment with home isolation, rest, cold medicine, and analgesia. - Red flags to seek further treatment include chest pain, shortness of breath, and lethargy; in the ER if severe. - COVID WITH FLUA+B, ROUTINE Justin Doherty MD [facility] 08-20-2022 History of Present illness Narrative Patient presents with: Fatigue: Body aches, fever, sore throat, KELLER x 1 day HPI: Feeling sick today. Positive symptoms: Sore throat, Fever, Body Aches, Malaise, Fatigue, Headache, Cough, nausea Negative symptoms: Nasal Congestion, Rhinorrhea, Vomiting, Diarrhea, OTC: alkaseltzercezar Has had COVID illness 3 times in the past. MEDICATIONS: Current Outpatient Medications Medication Sig ergocalciferol, vitamin D2, (VITAMIN D2 ORAL) Take by mouth. Omeprazole Magnesium (PRILOSEC OTC) 20 mg tablet Take 20 mg by mouth once daily. Lactobacillus acidophilus (PROBIOTIC ORAL) Take by mouth. (Patient not taking: Reported on 08/20/2022) No current facility-administered medications for this visit. ALLERGIES: ALLERGIES Allergen Reactions Neosporin [Hydrocor* Swelling eyes and lips swell Neosporin [Neomycin* VITALS: BP 128/90 Pulse 107 Temp (!) 38.4 C (101.1 F) Resp 22 Wt 129.9 kg (286 lb 6.4 oz) SpO2 99% PHYSICAL EXAM: GEN: ill appearing HEENT: PERRL, EOMI, conjunctiva clear Ears: canals clear. TMs without erythema, bulge, or effusion Sinuses: non-tender frontal sinus, non-tender maxillary sinuses Throat: moist mucous membranes, pharyngeal erythema, no exudate Neck: supple, no thyromegaly, no lymphadenopathy HEART: regular rate and rhythm, no murmurs LUNGS: clear to auscultation, no wheezes or crackles, no increased WOB ASSESSMENT/PLAN: 1. Sore throat - ICD9: 462, ICD10: J02.9 (primary diagnosis) - STREP A MOLECULAR (POC)- negative - COVID WITH FLUA+B, ROUTINE 2. Influenza-like illness - ICD9: 487.1, ICD10: J11.1 - suspect influenza, differential includes COVID-19. - Discussed supportive care treatment with home isolation, rest, cold medicine, and analgesia. - Red flags to seek further treatment include chest pain, shortness of breath, and lethargy; in the ER if severe. - COVID WITH FLUA+B, ROUTINE Justin Doherty MD documented in this encounter [facility] 12-12-2021 Note HNO ID: [id number] Author: Gareth Boyer PA-C Service: ? Author Type: Physician Back Hoe Operator Type: Progress Notes Filed: 12/12/2021 5:13 PM Note Text: This note was created using [employer]. Subjective Jennifer Chandra is a 36 year old male. HPI Patient presents with a chief complaint of acid reflux flare. He is on omeprazole daily. He states when he lays down at night he feels the acid in his throat and causes him to cough. He has been seen for this 1 other time as well. He states he had seen GI in 2014 and had a scope which he states was normal at that time. Denies any abdominal pain. No fever. No vomiting. He tries to avoid spicy food. He does take ibuprofen every once in a while. Review of Systems Constitutional: Negative. HENT: Negative. Gastrointestinal: Acid reflux All other systems reviewed and are negative. History reviewed. No pertinent past medical history. Current Outpatient Medications Medication Sig Dispense Refill - ergocalciferol, vitamin D2, (VITAMIN D2 ORAL) Take by mouth. - Lactobacillus acidophilus (PROBIOTIC ORAL) Take by mouth. - pantoprazole DR (PROTONIX) 40 mg tablet Take 1 tablet by mouth daily before breakfast. Take on empty stomach, 1/2 hr before meal. 30 tablet 2 - sucralfate (CARAFATE) 1 gram tablet Take 1 tablet by mouth four times daily for 7 days. 28 tablet 0 - Kzhiwzioeuzdygj-Gbuwekabe-XW (BROMFED DM) 2-30-10 mg/5 mL syrup Take 5 mL by mouth four times daily as needed. (Patient not taking: Reported on 12/12/2021 ) 120 mL 0 - predniSONE (DELTASONE) 20 mg tablet 2 pills daily x 3 days, then 1 pill daily x 4 days, then 1/2 pill daily x 4 days. (Patient not taking: Reported on 12/28/2019 ) 12 tablet 0 - Imjxhpadgmtwqqg-Qjymcfpai-XM (BROMFED DM) 2-30-10 mg/5 mL syrup Take 10 mL by mouth four times daily as needed. (Patient not taking: Reported on 01/10/2019 ) 200 mL 0 - methylPREDNISolone (MEDROL, MEERA,) 4 mg Dose-Pack Take as directed (Patient not taking: Reported on 01/10/2019 ) 1 Package 0 - loratadine (CLARITIN) 10 mg tablet Take 1 tablet by mouth once daily. (Patient not taking: Reported on 01/10/2019 ) 30 tablet 0 - naproxen(NAPROSYN 500 MG TAB) Take one(1) tablet twice daily as needed for pain, with food. (Patient not taking: ADMINISTER WITH FOOD ) 0 - ranitidine hcl(ZANTAC 300 MG TAB) Take one(1) tablet twice daily. (Patient not taking: ) 60 0 No current facility-administered medications for this visit. No past surgical history on file. No family history on file. Social History Tobacco Use - Smoking status: Never Smoker - Smokeless tobacco: Never Used Vaping Use - Vaping Use: Never used Substance Use Topics - Alcohol use: Not on file - Drug use: Not on file Objective BP 122/80 Pulse 94 Temp 36.9 ?C (98.5 ?F) (Tympanic) Resp 16 Wt 130.6 kg (288 lb) SpO2 98% Physical Exam Vitals reviewed. Constitutional: Appearance: Normal appearance. HENT: Head: Normocephalic and atraumatic. Mouth/Throat: Mouth: Mucous membranes are moist. Pharynx: Oropharynx is clear. No oropharyngeal exudate or posterior oropharyngeal erythema. Cardiovascular: Rate and Rhythm: Normal rate and regular rhythm. Heart sounds: Normal heart sounds. Pulmonary: Effort: Pulmonary effort is normal. Breath sounds: Normal breath sounds. Abdominal: General: Abdomen is flat. Bowel sounds are normal. Palpations: Abdomen is soft. Tenderness: There is no abdominal tenderness. There is no guarding or rebound. Skin: General: Skin is warm and dry. Neurological: Mental Status: He is alert. Assessment and Plan ASSESSMENT/PLAN: 1. GERD without esophagitis - ICD9: 530.81, ICD10: K21.9 I will switch his omeprazole to pantoprazole. Also given Carafate for a week. We will have him follow-up with GI if not improving. Patient agreeable. Gareth Boyer PA-C [facility] 12-12-2021 History of Present illness Narrative This note was created using [employer]. Subjective Jennifer Chandra is a 36 year old male. HPI Patient presents with a chief complaint of acid reflux flare. He is on omeprazole daily. He states when he lays down at night he feels the acid in his throat and causes him to cough. He has been seen for this 1 other time as well. He states he had seen GI in 2014 and had a scope which he states was normal at that time. Denies any abdominal pain. No fever. No vomiting. He tries to avoid spicy food. He does take ibuprofen every once in a while. Review of Systems Constitutional: Negative. HENT: Negative. Gastrointestinal: Acid reflux All other systems reviewed and are negative. History reviewed. No pertinent past medical history. Current Outpatient Medications Medication Sig Dispense Refill ergocalciferol, vitamin D2, (VITAMIN D2 ORAL) Take by mouth. Lactobacillus acidophilus (PROBIOTIC ORAL) Take by mouth. pantoprazole DR (PROTONIX) 40 mg tablet Take 1 tablet by mouth daily before breakfast. Take on empty stomach, 1/2 hr before meal. 30 tablet 2 sucralfate (CARAFATE) 1 gram tablet Take 1 tablet by mouth four times daily for 7 days. 28 tablet 0 Goyiocvohiuhyug-Cousiqyfr-HD (BROMFED DM) 2-30-10 mg/5 mL syrup Take 5 mL by mouth four times daily as needed. (Patient not taking: Reported on 12/12/2021 ) 120 mL 0 predniSONE (DELTASONE) 20 mg tablet 2 pills daily x 3 days, then 1 pill daily x 4 days, then 1/2 pill daily x 4 days. (Patient not taking: Reported on 12/28/2019 ) 12 tablet 0 Dmsmlpqpqytiexr-Trccyhnju-QA (BROMFED DM) 2-30-10 mg/5 mL syrup Take 10 mL by mouth four times daily as needed. (Patient not taking: Reported on 01/10/2019 ) 200 mL 0 methylPREDNISolone (MEDROL, MEERA,) 4 mg Dose-Pack Take as directed (Patient not taking: Reported on 01/10/2019 ) 1 Package 0 loratadine (CLARITIN) 10 mg tablet Take 1 tablet by mouth once daily. (Patient not taking: Reported on 01/10/2019 ) 30 tablet 0 naproxen(NAPROSYN 500 MG TAB) Take one(1) tablet twice daily as needed for pain, with food. (Patient not taking: ADMINISTER WITH FOOD ) 0 ranitidine hcl(ZANTAC 300 MG TAB) Take one(1) tablet twice daily. (Patient not taking: ) 60 0 No current facility-administered medications for this visit. No past surgical history on file. No family history on file. Social History Tobacco Use Smoking status: Never Smoker Smokeless tobacco: Never Used Vaping Use Vaping Use: Never used Substance Use Topics Alcohol use: Not on file Drug use: Not on file Objective BP 122/80 Pulse 94 Temp 36.9 C (98.5 F) (Tympanic) Resp 16 Wt 130.6 kg (288 lb) SpO2 98% Physical Exam Vitals reviewed. Constitutional: Appearance: Normal appearance. HENT: Head: Normocephalic and atraumatic. Mouth/Throat: Mouth: Mucous membranes are moist. Pharynx: Oropharynx is clear. No oropharyngeal exudate or posterior oropharyngeal erythema. Cardiovascular: Rate and Rhythm: Normal rate and regular rhythm. Heart sounds: Normal heart sounds. Pulmonary: Effort: Pulmonary effort is normal. Breath sounds: Normal breath sounds. Abdominal: General: Abdomen is flat. Bowel sounds are normal. Palpations: Abdomen is soft. Tenderness: There is no abdominal tenderness. There is no guarding or rebound. Skin: General: Skin is warm and dry. Neurological: Mental Status: He is alert. Assessment and Plan ASSESSMENT/PLAN: 1. GERD without esophagitis - ICD9: 530.81, ICD10: K21.9 I will switch his omeprazole to pantoprazole. Also given Carafate for a week. We will have him follow-up with GI if not improving. Patient agreeable. Gareth Boyer PA-C documented in this encounter [facility] 08-02-2021 History of Present illness Narrative Radiology Service Progress Note PATIENT NAME: Jennifer Chandra DATE OF SERVICE: August 02, 2021 TIME: 1:47 PM PATIENT IDENTITY VERIFICATION COMPLETED USING TWO (2) IDENTIFIERS: Name and Date of confirmed by patient verbally. FALL SCREENING: Has the patient had 2 falls in the last year or 1 fall with injury or currently using an Ambulatory Assistive Device (Walker, Cane, Wheelchair, Crutches, etc.)? No PATIENT GENDER DATA: Male PATIENT RELEVANT IMPLANT DATA REVIEWED: Yes RADIOLOGY DEPARTMENT: General X-ray: Exam(s) Completed: Chest X-Ray PERIPHERAL IV DATA: Not applicable SIGNED BY: RT Starr(R) August 02, 2021 1:47 PM documented in this encounter [facility] Evaluation + Plan note Future Appointments Appointment Date:12/25/2023 03:30:00 PM Scheduled Provider:CESARIO HILL Location:[facility] Appointment Type:PC OV Future Scheduled TestsComplete Blood Count 03/14/23Lipid Profile 03/14/23Vitamin D Level 03/14/23Complete Metabolic Panel 03/14/23 [facility] Evaluation + Plan note Future Appointments Appointment Date:08/13/2025 02:00:00 PM Scheduled Provider:CESARIO HILL Location:[facility] Appointment Type: Wellness Annual Future Scheduled TestsAspartate Aminotransferase 06/19/24A1C Hemoglobin 07/15/24A1C Hemoglobin 06/19/24ALT / SGPT 06/19/24Complete Blood Count 07/15/24Lipid Profile 07/15/24Lipid Profile 06/19/24Complete Metabolic Panel 07/15/24 [facility] Evaluation note Diagnosis GERD without esophagitis- Primary Esophageal reflux documented in this encounter [facility] noteNo assessment information availableWAvita Health System Work Phone: Evaluation note* Diagnosis Sore throat- Primary Acute pharyngitis Influenza-like illness Influenza with other respiratory manifestations documented in this encounter [facility] note* Diagnosis Sore throat- Primary Acute pharyngitis documented in this encounter [facility] note* Diagnosis Cough SOB (shortness of breath) Shortness of breath documented in this encounter [facility] course Narrative No data available for this section [facility] Hospital Discharge instructions No data available for this section [facility] Progress note No data available for this section [facility] Reason for Referral Specialty Diagnoses / Procedures Referred By Stephen machuca Referred To Contact Gastroenterology Diagnoses GERD without esophagitis Procedures CONSULT TO GASTROENTEROLOGY OFFICE/OUTPATIENT NEW HIGH MDM 60-74 MINUTES Gareth Boyer PA-C [address] [place] [address] Referral ID Status Reason Start Date Expiration Date Visits Requested Visits Authorized [id number] Authorized PCP Requested Referral 12/12/2021 12/12/2022 1 1 Chief Complaint and Reason for Visit Chief Complaint BILATERAL HAND XRAY - PAIN Advance Directives No Advanced Directives Records Found Advance Directive Response Recorded Date/ Time Living Will No November 05, 2018 6:04am Power of Manager Law No November 05 9 6:04am Summary Purpose Family History No Family History Records FoundNo Family History Records FoundNo Family History Records Found No data available for this section No data available for this section No Family History Records Found Health Concerns Infection Onset Date Last Indicated Resolved Time COVID-19 Rule-Out 08/20/2022 08/20/2022 Infection Onset Date Last Indicated Resolved Time COVID-19 Rule-Out 08/20/2022 08/20/2022 08/21/2022 7:34 AM EST Additional Source Comments Source Comments (unrecognize d section and content) In the event this informatio n is protected by the Federal Confidentiality of Alcohol and Drug Abuse Patient Records regulations: The Federal rules restrict any use of the information to criminally investigate or prosecute any alcohol or drug abuse patient.[facility] the event this information is protected by the Federal Confidentiality of Alcohol and Drug Abuse Patient Records regulations: The Federal rules restrict any use of the information to criminally investigate or prosecute any alcohol or drug abuse patient.[facility] the event this information is protected by the Federal Confidentiality of Alcohol and Drug Abuse Patient Records regulations: The Federal rules restrict any use of the information to criminally investigate or prosecute any alcohol or drug abuse patient.[facility] the event this information is protected by the Federal Confidentiality of Alcohol and Drug Abuse Patient Records regulations: The Federal rules restrict any use of the information to criminally investigate or prosecute any alcohol or drug abuse patient.[facility] the event this information is protected by the Federal Confidentiality of Alcohol and Drug Abuse Patient Records regulations: The Federal rules restrict any use of the information to criminally investigate or prosecute any alcohol or drug abuse patient.[facility] Reason for Visit (unrecogniz ed section and content) Reason Comments acid reflux x 2 days and causing him to cough Reason Comments Fatigue Body aches, fever, s ore throat, KELLER x 1 day Reason Comments Results Reason Comments Pain, Throat Pt reported throat p ain, Keller, x3 days. Care Teams (unrecognized sec tion and content) Proced Tech Relationship Specialty Start Date End Date Jose Wilkes Evelio [address] [facility] [address] [place], [place] [id number] PCP - General Family Practice 04/05/21 Proced Tech Relationship Specialty Start Date End Date Jose Wilkes Evelio [address] [facility] [address] [place], [place] [id number] PCP - General Family Medicine 04/05/21 Proced Tech Relationship Specialty Start Date End Date Jose Wilkes [address] [facility] [address] [place] [address] PCP - General Family Medicine 04/05/21 Proced Tech Relationship Specialty Start Date End Date Jose Wilkes [address] [facility] [address] [place], [place] [id number] PCP - General Family Medicine 04/05/21 Proced Tech Relationship Specialty Start Date End Date Jose Wilkes MD [address] [facility] [address] [place], [place] [id number] PCP - General Family Medicine 04/05/21 Goals (unrecognized section and content) Goals may be documented in a n alternate section No data available for this section No data available for this section (unrecognized sect ion and content) No Status Records FoundNo Status Records FoundNo Status Records FoundNo Status Records Found INFORMATION SOURCE (unrecogn ized section and content) DATE CREATED AUTHOR 02/01/2022 [facility] DATE CREATED AUTHOR AUTHOR'S ORGANIZ ATION 08/25/2022 [facility] DATE CREATED AUTHOR AUTHOR'S ORGANIZ ATION 09/03/2023 [facility] ([place]) DATE CREATED AUTHOR AUTHOR'S ORGANIZ ATION 02/16/2025 [facility] FOR RECORDS PERTAINING TO PATIENTS WHO ARE OR HAVE BEEN ENROLLED IN A CHEMICAL DEPENDENCY/SUBSTANCEABUSE PROGRAM, SOME INFORMATION MAY BE OMITTED. This clinical summary was aggregated from multiple sources. Caution should be exercised in using it in the provision of clinical care. This summary normalizes information from multiple sources, and as a consequence, information in this document may materially change the coding, format and clinical context of patient data. In addition, data may be omitted in some cases. CLINICAL DECISIONS SHOULD BE BASED ON THE PRIMARY CLINICAL RECORDS. [employer] [facility]. provides no warranty or guarantee of the accuracy or completeness of information in this document.
== END | disposition home or self-care (01) ==
LOC: RAD 07:03
PROVIDERS: PCP Family Medicine; Referring Provider Physician Assistant; Visit Provider Physician Assistant
DX: R05.9 Cough, unspecified (principal)
CPT/HCPCS: 71046